=== PATIENT | male | born 1960 | race African-American/Black ===

== ENCOUNTER 2017-11-06 19:00 | Emergency (ER) | payer MEDICAID, OTHER ==
[~2017-11-06] VITALS: Ht 174 cm; Wt 73.0 kg
[~2017-11-06 19:00] MED LIST: METF500T6
[2017-11-06] MEDS ORDERED: FERR-71 MT (19:45)
[2017-11-06] MEDS ORDERED: HYDR-4009 MT (19:45)
[2017-11-06] MEDS ORDERED: GABA-290 MT (19:45)
[2017-11-06] MEDS ORDERED: CHOLESTEROL (19:45)
[2017-11-06] MEDS ORDERED: IBUP-2030 MT (19:45)
[2017-11-06] MEDS ORDERED: HYDR25TA MT (19:45)
[2017-11-07 00:35] LABS: BASOPHILS % 0.2 % (0.0-2.0); EOSINOPHILS % 8.6 % (0.0-5.0); HEMOGLOBIN. 10.6 g/dL (14.0-18.0); LYMPHOCYTES % 28.1 % (20.0-50.0); MEAN CORPUSCULAR HEMOGLOBIN 22.7 pg (28.0-32.0); MEAN CORPUSCULAR VOLUME 72.7 fL (80.0-94.0); MONOCYTES % 9.3 % (2.0-8.0); NEUTROPHILS % 53.8 % (40.0-76.0); PLATELET 215 x1000/uL (130-400); RED BLOOD CELL COUNT 4.68 mill/uL (4.7-6.1); RED CELL DISTRIBUTION WIDTH 15.2 % (11.6-14.6)
[2017-11-07 00:39] LABS: CHLORIDE 110 mEq/L (98-107)
[2017-11-07 00:42] LABS: PROTHROMBIN TIME 10.7 sec (9.4-11.6)
[2017-11-07] MEDS ORDERED: ACETAMINOPHEN WITH CODEINE 300/30MG TABLET PO ONE (01:30)
[2017-11-07 02:30] VITALS: BP 148/88
== END 2017-11-07 02:56 | disposition home or self-care (01) ==
LOC: ER 19:00
DX: E11.621 Type 2 diabetes mellitus with foot ulcer (principal); I10 Essential (primary) hypertension; D64.9 Anemia, unspecified; G62.9 Polyneuropathy, unspecified; F14.10 Cocaine abuse, uncomplicated; E78.00 Pure hypercholesterolemia, unspecified; Z90.81 Acquired absence of spleen; Z88.1 Allergy status to other antibiotic agents
CPT/HCPCS: 36415; 73630; 80053; 85025; 85610; 99285

== ENCOUNTER 2018-09-05 00:11 | Inpatient (IN) | payer MEDICAID ==
[~2018-09-05] VITALS: Ht 175.3 cm; Wt 76.2 kg
[~2018-09-05 00:11] MED LIST changes: +CHOLESTEROL; +FERR-71 MT; +GABA-290 MT; +HYDR-4009 MT; +HYDR25TA MT; +IBUP-2030 MT; +METF-414; -METF500T6
[2018-09-05] MEDS ORDERED: KETOROLAC 60MG/2ML VIAL IM STA (03:03)
[2018-09-05 04:07] LABS: BASOPHILS % 0.9 % (0.0-2.0); EOSINOPHILS % 5.6 % (0.0-5.0); HEMATOCRIT. 34.4 % (42.0-52.0); HEMOGLOBIN. 10.9 g/dL (14.0-18.0); MEAN CORPUSCULAR HEMOGLOBIN 23.1 pg (28.0-32.0); MEAN CORPUSCULAR VOLUME 72.8 fL (80.0-94.0); MEAN PLATELET VOLUME 8.9 fl (7.4-10.4); NEUTROPHILS % 58.5 % (40.0-76.0); PLATELET 188 x1000/uL (130-400); RED BLOOD CELL COUNT 4.72 mill/uL (4.7-6.1); RED CELL DISTRIBUTION WIDTH 14.9 % (11.6-14.6)
[2018-09-05] MEDS ORDERED: CLINDAMYCIN 900 MG in DEXTROSE 5% WATER 50 ML IV ONE (06:30)
[2018-09-05] MEDS ORDERED: PIPERACILLIN/TAZ 3.375G PREMIX 50 ML IV ONE (06:30)
[2018-09-05] MEDS ORDERED: ACETAMINOPHEN 325MG TABLET PO PRN ×2 (07:00→07:45)
[2018-09-05] MEDS: SODIUM CHLORIDE 0.9% 1,000 ML IV SCH ×2 (07:33→20:47)
[2018-09-05] MEDS ORDERED: DOCUSATE SODIUM 100MG CAPSULE PO PRN (07:45)
[2018-09-05] MEDS ORDERED: ONDANSETRON HCL 4MG/2ML INJ IV PRN (07:45)
[2018-09-05 08:31] LABS: CLARITY URINE CLEAR (CLEAR); COLOR URINE YELLOW (YELLOW); KETONES URINE NEGATIVE (NEGATIVE); LEUKOCYTE ESTERASE URINE NEGATIVE (NEGATIVE); NITRITE URINE NEGATIVE (NEGATIVE); OCCULT BLOOD URINE TRACE (NEGATIVE); PH URINE 5.5 (4.5-8.0); PROTEIN URINE 3+ (NEGATIVE); SPECIFIC GRAVITY URINE 1.018 (1.005-1.030); UROBILINOGEN URINE 0.2 E.U./dL (0.2-1.0)
[2018-09-05] MEDS ORDERED: LEVOFLOXACIN 500MG PREMIX 100 ML IV SCH (08:45)
[2018-09-05] MEDS: HYDROMORPHONE HCL/PF 2MG/ML CPJ IV PRN ×3 (10:04→23:39)
[2018-09-05 10:10] VITALS: BP 149/123
[2018-09-05] MEDS ORDERED: LEVOFLOXACIN 500MG PREMIX 100 ML IV NR (13:00)
[2018-09-05] MEDS ORDERED: FLUCONAZOLE 100MG TABLET PO SCH (13:00)
[2018-09-05] MEDS: ENOXAPARIN 30MG/0.3ML SYR SUBCUT SCH (13:08)
[2018-09-05] MEDS: AMLODIPINE 10MG TABLET PO SCH (15:53)
[2018-09-05] MEDS: CLONIDINE 0.1MG TABLET PO PRN (15:53)
[2018-09-05 20:00] VITALS: BP 167/97
[2018-09-05] MEDS: HYDRALAZINE HCL 50MG TABLET PO SCH (20:43)
[2018-09-05] MEDS: CLINDAMYCIN 600MG PREMIX 50 ML IV SCH (22:03)
[2018-09-06] VITALS: BP 135/75
[2018-09-06] MEDS ORDERED: DEXTROSE 50% WATER 50ML SYRINGE IV PRN
[2018-09-06 04:00] VITALS: BP 133/74
[2018-09-06 06:07] LABS: EOSINOPHILS % 6.8 % (0.0-5.0); HEMATOCRIT. 34.1 % (42.0-52.0); HEMOGLOBIN. 10.9 g/dL (14.0-18.0); MEAN CORPUSCULAR HEMOGLOBIN 23.4 pg (28.0-32.0); MEAN CORPUSCULAR VOLUME 73.4 fL (80.0-94.0); MEAN PLATELET VOLUME 8.9 fl (7.4-10.4); MONOCYTES % 11.3 % (2.0-8.0); NEUTROPHILS % 46.9 % (40.0-76.0); PLATELET 174 x1000/uL (130-400); RED BLOOD CELL COUNT 4.65 mill/uL (4.7-6.1); RED CELL DISTRIBUTION WIDTH 15.1 % (11.6-14.6)
[2018-09-06] MEDS: CLINDAMYCIN 600MG PREMIX 50 ML IV SCH ×4 (06:18→22:40)
[2018-09-06] MEDS: BLOOD SUGAR DIAGNOSTIC STRIP TEST SCH ×4 (06:32→21:00)
[2018-09-06 07:37] LABS: CHLORIDE 113 mEq/L (98-107)
[2018-09-06 07:49] LABS: LDL CHOLESTEROL 103 mg/dL (5-100)
[2018-09-06 07:50] LABS: HDL CHOLESTEROL 43 mg/dL (40-59)
[2018-09-06] MEDS: INSULIN LISPRO 100 UNITS/ML SUBCUT SCH ×4 (07:50→21:00)
[2018-09-06 08:20] VITALS: BP 142/85
[2018-09-06] MEDS: HYDRALAZINE HCL 50MG TABLET PO SCH ×2 (08:50→21:18)
[2018-09-06] MEDS: AMLODIPINE 10MG TABLET PO SCH (08:50)
[2018-09-06] MEDS: ENOXAPARIN 30MG/0.3ML SYR SUBCUT SCH (08:53)
[2018-09-06] MEDS: HYDROMORPHONE HCL/PF 2MG/ML CPJ IV PRN ×4 (08:54→23:02)
[2018-09-06] MEDS ORDERED: LEVOFLOXACIN 250MG PREMIX 50 ML IV SCH (11:00)
[2018-09-06] MEDS: SODIUM CHLORIDE 0.9% 1,000 ML IV SCH (11:07)
[2018-09-06 11:36] VITALS: BP 145/88
[2018-09-06] MEDS ORDERED: SODIUM BICARBONATE 4% (2.4MEQ) 5ML VIAL IV ONE (13:58)
[2018-09-06] MEDS ORDERED: LIDOCAINE HCL 1% 20ML VIAL (Pyxis) INJ ONE (13:58)
[2018-09-06] MEDS: CLONIDINE 0.1MG TABLET PO PRN (15:50)
[2018-09-06 16:00] VITALS: BP 161/95
[2018-09-06 20:00] VITALS: BP 154/97
[2018-09-06] MEDS ORDERED: ATORVASTATIN CALCIUM 10MG TABLET PO SCH (21:00)
[2018-09-07] VITALS: BP 149/87
[2018-09-07] MEDS: HYDROMORPHONE HCL/PF 2MG/ML CPJ IV PRN (03:51)
[2018-09-07 04:00] VITALS: BP 158/88
[2018-09-07] MEDS: CLINDAMYCIN 600MG PREMIX 50 ML IV SCH ×2 (06:22→13:49)
[2018-09-07] MEDS: BLOOD SUGAR DIAGNOSTIC STRIP TEST SCH ×2 (06:30→13:17)
[2018-09-07] MEDS: INSULIN LISPRO 100 UNITS/ML SUBCUT SCH ×2 (07:33→12:50)
[2018-09-07 08:00] VITALS: BP 140/84
[2018-09-07] MEDS: HYDROCODONE/APAP 7.5/325MG 1 TAB TABLET PO PRN ×2 (08:59→14:31)
[2018-09-07] MEDS: HYDRALAZINE HCL 50MG TABLET PO SCH (09:00)
[2018-09-07] MEDS: AMLODIPINE 10MG TABLET PO SCH (09:00)
[2018-09-07] MEDS: ENOXAPARIN 30MG/0.3ML SYR SUBCUT SCH (09:04)
[2018-09-07] MEDS ORDERED: LEVOFLOXACIN 250MG PREMIX 50 ML IV SCH (11:00)
[2018-09-07 12:00] VITALS: BP 157/89
[2018-09-07] MEDS: CLONIDINE 0.1MG TABLET PO PRN (14:31)
[2018-09-07 14:33] VITALS: BP 147/68
== END 2018-09-07 17:25 | disposition home health service (06) | DRG 344 ==
LOC: ER 00:11 → 6EST 06:53 → SUPCPDRO 07:31 → ENRESERV 08:09
PROVIDERS: ADMIT Hospitalist; ATTEND Hospitalist
PROC: 0JBR0ZZ Excision of Left Foot Subcutaneous Tissue and Fascia, Open Approach (ICD-10-PCS; principal; 2018-09-06)
PROC: 02HV33Z Insertion of Infusion Device into Superior Vena Cava, Percutaneous Approach (ICD-10-PCS; 2018-09-06)
PROC: B518ZZA Fluoroscopy of Superior Vena Cava, Guidance (ICD-10-PCS; 2018-09-06)
PROC: B548ZZA Ultrasonography of Superior Vena Cava, Guidance (ICD-10-PCS; 2018-09-06)
DX: E11.69 Type 2 diabetes mellitus with other specified complication (principal); M86.672 Other chronic osteomyelitis, left ankle and foot; N17.9 Acute kidney failure, unspecified; E46 Unspecified protein-calorie malnutrition; E11.621 Type 2 diabetes mellitus with foot ulcer; E11.22 Type 2 diabetes mellitus with diabetic chronic kidney disease; E11.610 Type 2 diabetes mellitus with diabetic neuropathic arthropathy; E11.42 Type 2 diabetes mellitus with diabetic polyneuropathy; L97.529 Non-pressure chronic ulcer of other part of left foot with unspecified severity; I12.9 Hypertensive chronic kidney disease with stage 1 through stage 4 chronic kidney disease, or unspecified chronic kidney disease; N18.9 Chronic kidney disease, unspecified; F12.90 Cannabis use, unspecified, uncomplicated; E78.00 Pure hypercholesterolemia, unspecified; D64.9 Anemia, unspecified; F17.210 Nicotine dependence, cigarettes, uncomplicated; Z83.3 Family history of diabetes mellitus; Z89.412 Acquired absence of left great toe; Z90.81 Acquired absence of spleen; Z91.19 Patient's noncompliance with other medical treatment and regimen; Z88.1 Allergy status to other antibiotic agents; Z91.012 Allergy to eggs; Z79.899 Other long term (current) drug therapy; Z68.24 Body mass index [BMI] 24.0-24.9, adult; Z79.84 Long term (current) use of oral hypoglycemic drugs
CPT/HCPCS: 36415; 36569; 36573; 71045; 73630; 80048; 80061; 82962; 93005; 93970; 96365; 96368; 96372; 99285; C1725; C1769; J1170; J1650; J1885; J1956; J2543; J3490; J7060

== ENCOUNTER 2018-11-10 23:07 | Inpatient (IN) | payer MEDICAID, OTHER ==
[~2018-11-10] VITALS: Ht 172.7 cm; Wt 72.1 kg
[~2018-11-10 23:07] MED LIST changes: -CHOLESTEROL
[2018-11-11] MEDS ORDERED: MORPHINE SULFATE 4 MG/ML CPJ (NOT FOR IM USE) IV STA (01:12)
[2018-11-11] MEDS ORDERED: SODIUM CHLORIDE 0.9% 1,000 ML IV ONE (01:12)
[2018-11-11] MEDS ORDERED: ONDANSETRON HCL 4MG/2ML INJ IV STA (01:12)
[2018-11-11] MEDS ORDERED: PIPERACILLIN/TAZ 3.375G PREMIX 50 ML IV ONE (01:15)
[2018-11-11] MEDS ORDERED: CLINDAMYCIN 600 MG in DEXTROSE 5% WATER 50 ML IV ONE (01:15)
[2018-11-11 02:28] LABS: BASOPHILS % 1.2 % (0.0-2.0); CHLORIDE 113 mEq/L (98-107); EOSINOPHILS % 3.8 % (0.0-5.0); HEMATOCRIT. 36.1 % (42.0-52.0); HEMOGLOBIN. 11.4 g/dL (14.0-18.0); LYMPHOCYTES % 28.6 % (20.0-50.0); MEAN CORPUSCULAR HEMOGLOBIN 23.5 pg (28.0-32.0); MEAN CORPUSCULAR VOLUME 74.7 fL (80.0-94.0); MEAN PLATELET VOLUME 9.5 fl (7.4-10.4); MONOCYTES % 10.3 % (2.0-8.0); NEUTROPHILS % 56.1 % (40.0-76.0); PLATELET 180 x1000/uL (130-400); RED BLOOD CELL COUNT 4.83 mill/uL (4.7-6.1); RED CELL DISTRIBUTION WIDTH 14.8 % (11.6-14.6)
[2018-11-11 04:07] LABS: *AMPHETAMINES SCREEN URINE NEGATIVE (NEGATIVE)
[2018-11-11 04:08] LABS: *BARBITURATES SCREEN URINE NEGATIVE (NEGATIVE); *BENZODIAZEPINES SCREEN URINE NEGATIVE (NEGATIVE); *COCAINE SCREEN URINE PRESUMTIVE POSITIVE (NEGATIVE); METHADONE URINE SCREEN NEGATIVE (NEGATIVE); OPIATES URINE SCREEN PRESUMTIVE POSITIVE (NEGATIVE); PHENCYCLIDINE URINE SCREEN NEGATIVE (NEGATIVE)
[2018-11-11 04:09] LABS: CANNABINOID URINE SCREEN NEGATIVE (NEGATIVE)
[2018-11-11 05:30] VITALS: BP 186/115
[2018-11-11] MEDS ORDERED: FURO40TA5 PO (05:49)
[2018-11-11] MEDS ORDERED: ATOR20TA65 MT (05:49)
[2018-11-11] MEDS ORDERED: INSU100I28 SQ (05:49)
[2018-11-11] MEDS ORDERED: SILV20CR13 TP (05:49)
[2018-11-11] MEDS ORDERED: GABA-533 PO (05:49)
[2018-11-11] MEDS ORDERED: FISH1CAP34 PO (05:49)
[2018-11-11] MEDS ORDERED: CARV6.2548 PO (05:49)
[2018-11-11 06:21] VITALS: BP 186/115
[2018-11-11] MEDS ORDERED: VANCOMYCIN 1 G PREMIX 200 ML IV SCH (07:45)
[2018-11-11] MEDS ORDERED: DEXTROSE 50% WATER 50ML SYRINGE IV PRN (07:45)
[2018-11-11] MEDS ORDERED: HYDROCODONE/ACETAMINOPHEN 5/325MG TABLET PO PRN (07:45)
[2018-11-11] MEDS: INSULIN LISPRO 100 UNITS/ML SUBCUT SCH ×4 (07:50→21:00)
[2018-11-11 08:00] VITALS: BP 160/96
[2018-11-11] MEDS ORDERED: IBUPROFEN 800MG TABLET PO PRN (08:45)
[2018-11-11] MEDS ORDERED: GABAPENTIN 400MG CAPSULE PO ONE (09:00)
[2018-11-11] MEDS: ENOXAPARIN 40MG/0.4ML SYR SUBCUT SCH (10:08)
[2018-11-11] MEDS: FISH OIL/OMEGA-3 FATTY ACIDS 1000MG CAPSULE PO SCH (10:08)
[2018-11-11] MEDS: CARVEDILOL 6.25 MG TABLET PO SCH ×2 (10:09→21:00)
[2018-11-11] MEDS: HYDROCHLOROTHIAZIDE 25MG TABLET PO SCH (10:09)
[2018-11-11] MEDS: FERROUS SULFATE 325MG TABLET PO SCH (10:09)
[2018-11-11] MEDS: FUROSEMIDE 40MG TABLET PO SCH (10:09)
[2018-11-11] MEDS ORDERED: LEVOFLOXACIN 500MG TABLET PO SCH ×2 (11:00→13:00)
[2018-11-11 12:00] VITALS: BP 161/90
[2018-11-11] MEDS: BLOOD SUGAR DIAGNOSTIC STRIP TEST SCH ×3 (12:20→21:00)
[2018-11-11] MEDS: CLONIDINE 0.3MG TABLET PO PRN (13:19)
[2018-11-11] MEDS: SILVER SULFADIAZINE 1% CREAM 25GM TOP SCH ×2 (13:19→22:20)
[2018-11-11] MEDS: CLINDAMYCIN 600MG PREMIX 50 ML IV SCH ×2 (14:28→22:04)
[2018-11-11] MEDS: GABAPENTIN 300MG CAPSULE PO SCH ×2 (14:29→22:00)
[2018-11-11 16:00] VITALS: BP 113/63
[2018-11-11 20:00] VITALS: BP 120/69
[2018-11-11] MEDS: ATORVASTATIN CALCIUM 20MG TABLET PO SCH (22:03)
[2018-11-11] MEDS: MORPHINE SULFATE 2 MG/ML CPJ (NOT FOR IM USE) IV PRN (22:04)
[2018-11-12] VITALS: BP 129/72
[2018-11-12] MEDS: CLINDAMYCIN 600MG PREMIX 50 ML IV SCH ×3 (06:15→22:17)
[2018-11-12] MEDS: POLYVINYL ALCOHOL OPHTH DROPS 15ML BOTHEYE PRN ×3 (06:15→22:18)
[2018-11-12] MEDS: GABAPENTIN 300MG CAPSULE PO SCH ×3 (06:25→22:17)
[2018-11-12] MEDS: BLOOD SUGAR DIAGNOSTIC STRIP TEST SCH ×4 (07:20→21:00)
[2018-11-12] MEDS: INSULIN LISPRO 100 UNITS/ML SUBCUT SCH ×4 (07:50→21:00)
[2018-11-12 08:00] VITALS: BP 126/70
[2018-11-12] MEDS: CARVEDILOL 6.25 MG TABLET PO SCH ×3 (09:00→22:19)
[2018-11-12] MEDS: MORPHINE SULFATE 2 MG/ML CPJ (NOT FOR IM USE) IV PRN ×2 (09:04→18:26)
[2018-11-12] MEDS: FISH OIL/OMEGA-3 FATTY ACIDS 1000MG CAPSULE PO SCH (10:02)
[2018-11-12] MEDS: ENOXAPARIN 40MG/0.4ML SYR SUBCUT SCH (10:02)
[2018-11-12] MEDS: FERROUS SULFATE 325MG TABLET PO SCH (10:03)
[2018-11-12] MEDS: FUROSEMIDE 40MG TABLET PO SCH (10:03)
[2018-11-12] MEDS: SILVER SULFADIAZINE 1% CREAM 25GM TOP SCH ×2 (10:05→22:18)
[2018-11-12] MEDS: HYDROCHLOROTHIAZIDE 25MG TABLET PO SCH (10:05)
[2018-11-12] MEDS: LEVOFLOXACIN 250MG TABLET PO SCH (11:57)
[2018-11-12 12:00] VITALS: BP 148/79
[2018-11-12 16:00] VITALS: BP 146/74
[2018-11-12 20:00] VITALS: BP 118/63
[2018-11-12] MEDS: ATORVASTATIN CALCIUM 20MG TABLET PO SCH (22:17)
[2018-11-13] VITALS: BP 135/83
[2018-11-13] MEDS: MORPHINE SULFATE 2 MG/ML CPJ (NOT FOR IM USE) IV PRN ×2 (03:02→11:29)
[2018-11-13] MEDS: CLONIDINE 0.3MG TABLET PO PRN (03:06)
[2018-11-13 04:44] VITALS: BP 110/70
[2018-11-13] MEDS: GABAPENTIN 300MG CAPSULE PO SCH ×2 (06:03→14:57)
[2018-11-13] MEDS: CLINDAMYCIN 600MG PREMIX 50 ML IV SCH ×2 (06:04→14:57)
[2018-11-13] MEDS: BLOOD SUGAR DIAGNOSTIC STRIP TEST SCH ×2 (06:09→11:38)
[2018-11-13] MEDS: INSULIN LISPRO 100 UNITS/ML SUBCUT SCH ×2 (06:09→12:50)
[2018-11-13 07:41] LABS: BASOPHILS % 0.7 % (0.0-2.0); EOSINOPHILS % 6.4 % (0.0-5.0); HEMATOCRIT. 37.2 % (42.0-52.0); HEMOGLOBIN. 11.8 g/dL (14.0-18.0); LYMPHOCYTES % 36.6 % (20.0-50.0); MEAN CORPUSCULAR HEMOGLOBIN 23.6 pg (28.0-32.0); MEAN CORPUSCULAR VOLUME 74.8 fL (80.0-94.0); MEAN PLATELET VOLUME 9.5 fl (7.4-10.4); MONOCYTES % 11.7 % (2.0-8.0); NEUTROPHILS % 44.6 % (40.0-76.0); PLATELET 171 x1000/uL (130-400); RED BLOOD CELL COUNT 4.97 mill/uL (4.7-6.1)
[2018-11-13 08:00] VITALS: BP 106/64
[2018-11-13] MEDS: ENOXAPARIN 40MG/0.4ML SYR SUBCUT SCH (08:50)
[2018-11-13] MEDS: FISH OIL/OMEGA-3 FATTY ACIDS 1000MG CAPSULE PO SCH (08:50)
[2018-11-13] MEDS: HYDROCHLOROTHIAZIDE 25MG TABLET PO SCH (08:50)
[2018-11-13] MEDS: FUROSEMIDE 40MG TABLET PO SCH (08:50)
[2018-11-13] MEDS: SILVER SULFADIAZINE 1% CREAM 25GM TOP SCH (08:51)
[2018-11-13] MEDS: CARVEDILOL 6.25 MG TABLET PO SCH (08:51)
[2018-11-13] MEDS: FERROUS SULFATE 325MG TABLET PO SCH (08:51)
[2018-11-13] MEDS ORDERED: SODIUM CHLORIDE 0.45% 1,000 ML IV SCH (10:30)
[2018-11-13] MEDS: LEVOFLOXACIN 250MG TABLET PO SCH (10:45)
[2018-11-13 12:00] VITALS: BP 116/73
[2018-11-13 16:00] VITALS: BP 147/78
[2018-11-13 16:37] VITALS: BP 116/73
[2018-11-14] MEDS ORDERED: ENOXAPARIN 30MG/0.3ML SYR SUBCUT SCH (09:00)
== END 2018-11-13 17:37 | disposition home health service (06) | DRG 380 ==
LOC: ER 23:07 → 6EST 11-11 03:41 → ENRESERV 11-11 04:30
PROVIDERS: ADMIT Internal Medicine; ATTEND Internal Medicine
PROC: 0JBR0ZZ Excision of Left Foot Subcutaneous Tissue and Fascia, Open Approach (ICD-10-PCS; principal; 2018-11-13)
DX: E11.621 Type 2 diabetes mellitus with foot ulcer (principal); L97.529 Non-pressure chronic ulcer of other part of left foot with unspecified severity; N17.9 Acute kidney failure, unspecified; E46 Unspecified protein-calorie malnutrition; E11.22 Type 2 diabetes mellitus with diabetic chronic kidney disease; E11.42 Type 2 diabetes mellitus with diabetic polyneuropathy; E11.610 Type 2 diabetes mellitus with diabetic neuropathic arthropathy; I13.0 Hypertensive heart and chronic kidney disease with heart failure and stage 1 through stage 4 chronic kidney disease, or unspecified chronic kidney disease; N18.9 Chronic kidney disease, unspecified; I50.9 Heart failure, unspecified; I25.10 Atherosclerotic heart disease of native coronary artery without angina pectoris; D64.9 Anemia, unspecified; F14.10 Cocaine abuse, uncomplicated; E11.51 Type 2 diabetes mellitus with diabetic peripheral angiopathy without gangrene; Z88.1 Allergy status to other antibiotic agents; Z91.012 Allergy to eggs; Z72.0 Tobacco use; Z83.3 Family history of diabetes mellitus; Z90.81 Acquired absence of spleen; Z91.19 Patient's noncompliance with other medical treatment and regimen; Z79.899 Other long term (current) drug therapy; Z89.412 Acquired absence of left great toe; Z68.24 Body mass index [BMI] 24.0-24.9, adult
CPT/HCPCS: 36415; 73620; 80048; 80305; 82962; 83605; 84145; 96365; 96366; 96367; 96375; 99285; J1650; J2270; J2405; J2543; J3490; J7030; J7040; J7060

== ENCOUNTER 2019-02-06 07:01 | Emergency (ER) | payer OTHER ==
[~2019-02-06] VITALS: Ht 172.7 cm; Wt 75.0 kg
[~2019-02-06 07:01] MED LIST changes: +ATOR20TA65 MT; +CARV6.2548 PO; +FISH1CAP34 PO; +FURO40TA5 PO; +GABA-533 PO; +INSU100I28 SQ; +SILV20CR13 TP
[2019-02-06] MEDS ORDERED: MORPHINE SULFATE 4 MG/ML CPJ (NOT FOR IM USE) IV STA (07:10)
[2019-02-06] MEDS ORDERED: ONDANSETRON HCL 4MG/2ML INJ IV STA (07:10)
[2019-02-06] MEDS ORDERED: NITROGLYCERIN 0.4MG TABLET SL SL PRN (07:15)
[2019-02-06] MEDS ORDERED: ASPIRIN 81MG TABLET PO ONE (07:15)
[2019-02-06] MEDS ORDERED: HYDRALAZINE 20MG/ML VIAL IV ONE (07:15)
[2019-02-06 07:55] LABS: CHLORIDE 115 mEq/L (98-107)
[2019-02-06 08:00] LABS: HEMATOCRIT. 39.9 % (42.0-52.0); HEMOGLOBIN. 12.4 g/dL (14.0-18.0); MEAN CORPUSCULAR HEMOGLOBIN 23.4 pg (28.0-32.0); MEAN CORPUSCULAR VOLUME 75.3 fL (80.0-94.0); PLATELET 167 x1000/uL (130-400); RED CELL DISTRIBUTION WIDTH 14.8 % (11.6-14.6)
[2019-02-06 08:30] LABS: PLATELET ESTIMATE NORMAL
[2019-02-06] MEDS ORDERED: PIPERACILLIN SODIUM/TAZOBACTAM 4.5 G in DEXT 5% WATER 100 ML IV SCH (09:15)
[2019-02-06 12:36] VITALS: BP 152/88
== END 2019-02-06 12:50 | disposition short-term general hospital (02) ==
LOC: ER 07:01 → CANBEDREQ 16:46
DX: I16.1 Hypertensive emergency (principal); I20.0 Unstable angina; E11.9 Type 2 diabetes mellitus without complications; L97.428 Non-pressure chronic ulcer of left heel and midfoot with other specified severity; L08.9 Local infection of the skin and subcutaneous tissue, unspecified; E78.00 Pure hypercholesterolemia, unspecified; F12.10 Cannabis abuse, uncomplicated; F14.10 Cocaine abuse, uncomplicated; Z90.81 Acquired absence of spleen; Z91.012 Allergy to eggs; Z88.3 Allergy status to other anti-infective agents
CPT/HCPCS: 36415; 70450; 71045; 73620; 80053; 83880; 84484; 85025; 87040; 93005; 96365; 96375; 99291; J0360; J2270; J2405; J2543; J7060; Z7610

== ENCOUNTER 2019-04-14 15:27 | Emergency (ER) | payer OTHER ==
[~2019-04-14] VITALS: Ht 172.7 cm; Wt 77.0 kg
[2019-04-14] MEDS ORDERED: MORPHINE SULFATE 10 MG/ML CPJ IM ONE (16:15)
[2019-04-14 16:40] LABS: BASOPHILS % 0.9 % (0.0-2.0); EOSINOPHILS % 6.6 % (0.0-5.0); HEMATOCRIT. 38.2 % (42.0-52.0); HEMOGLOBIN. 11.8 g/dL (14.0-18.0); LYMPHOCYTES % 28.7 % (20.0-50.0); MEAN CORPUSCULAR HEMOGLOBIN 23.4 pg (28.0-32.0); MEAN CORPUSCULAR VOLUME 75.9 fL (80.0-94.0); MEAN PLATELET VOLUME 8.7 fl (7.4-10.4); MONOCYTES % 7.8 % (2.0-8.0); PLATELET 179 x1000/uL (130-400); RED BLOOD CELL COUNT 5.03 mill/uL (4.7-6.1); RED CELL DISTRIBUTION WIDTH 14.8 % (11.6-14.6)
[2019-04-14 16:45] LABS: CHLORIDE 111 mEq/L (98-107)
[2019-04-14 21:36] VITALS: BP 178/99
== END 2019-04-14 21:37 | disposition home or self-care (01) ==
LOC: ER 15:27
DX: R10.11 Right upper quadrant pain (principal); D64.9 Anemia, unspecified; E11.9 Type 2 diabetes mellitus without complications; E78.00 Pure hypercholesterolemia, unspecified; I10 Essential (primary) hypertension; F12.10 Cannabis abuse, uncomplicated; F14.10 Cocaine abuse, uncomplicated; Z90.81 Acquired absence of spleen; Z79.899 Other long term (current) drug therapy; Z79.4 Long term (current) use of insulin; Z88.1 Allergy status to other antibiotic agents; Z91.012 Allergy to eggs
CPT/HCPCS: 36415; 71045; 74176; 76705; 80053; 83690; 84484; 85025; 85610; 93005; 96372; 99284; J2270

== ENCOUNTER 2019-08-29 03:19 | Emergency (ER) | payer OTHER ==
[~2019-08-29] VITALS: Ht 182.9 cm; Wt 68.0 kg
[2019-08-29] MEDS ORDERED: ACETAMINOPHEN 500MG TABLET PO ONE (03:45)
[2019-08-29] MEDS ORDERED: HYDRALAZINE HCL 25MG TABLET PO ONE (04:00)
[2019-08-29 08:32] VITALS: BP 150/83
== END 2019-08-29 09:27 | disposition home or self-care (01) ==
LOC: ER 03:19
DX: E11.621 Type 2 diabetes mellitus with foot ulcer (principal); L97.529 Non-pressure chronic ulcer of other part of left foot with unspecified severity; M54.9 Dorsalgia, unspecified; I10 Essential (primary) hypertension; Z79.899 Other long term (current) drug therapy; Z79.4 Long term (current) use of insulin; Z91.012 Allergy to eggs; Z88.1 Allergy status to other antibiotic agents; Z89.412 Acquired absence of left great toe; Z90.81 Acquired absence of spleen
CPT/HCPCS: 73630; 82962; 99283

== ENCOUNTER 2019-11-21 22:32 | Emergency (ER) | payer MEDICAID, OTHER ==
[~2019-11-21] VITALS: Ht 172.7 cm; Wt 72.0 kg
[2019-11-21] MEDS ORDERED: ONDANSETRON HCL 4MG/2ML INJ IV STA (23:18)
[2019-11-21] MEDS ORDERED: SODIUM CHLORIDE 0.9% 1,000 ML IV ONE (23:18)
[2019-11-21] MEDS ORDERED: MORPHINE SULFATE 4 MG/ML CPJ (NOT FOR IM USE) IV STA (23:18)
[2019-11-21] MEDS ORDERED: CEFAZOLIN 1000MG PREMIX 50 ML IV ONE (23:30)
[2019-11-21 23:55] LABS: BASOPHILS % 0.6 % (0.0-2.0); EOSINOPHILS % 4.7 % (0.0-5.0); HEMATOCRIT. 33.8 % (42.0-52.0); HEMOGLOBIN. 10.9 g/dL (14.0-18.0); LYMPHOCYTES % 19.8 % (20.0-50.0); MEAN CORPUSCULAR HEMOGLOBIN 24.2 pg (28.0-32.0); MONOCYTES % 9.2 % (2.0-8.0); NEUTROPHILS % 65.7 % (40.0-76.0); PLATELET 158 x1000/uL (130-400); RED CELL DISTRIBUTION WIDTH 15.9 % (11.6-14.6)
[2019-11-22] MEDS ORDERED: FENTANYL CITRATE/PF 50MCG/ML 2ML VIAL IV ONE (00:15)
[2019-11-22] MEDS ORDERED: MIDAZOLAM HCL 2 MG/2 ML VIAL IV ONE (01:30)
[2019-11-22] MEDS ORDERED: HYDROMORPHONE HCL/PF 2MG/ML CPJ IV ONE (01:30)
[2019-11-22 04:53] VITALS: BP 125/58
== END 2019-11-22 05:00 | disposition short-term general hospital (02) ==
LOC: ER 22:32
DX: S82.252A Displaced comminuted fracture of shaft of left tibia, initial encounter for closed fracture (principal); S82.452A Displaced comminuted fracture of shaft of left fibula, initial encounter for closed fracture; E11.9 Type 2 diabetes mellitus without complications; I10 Essential (primary) hypertension; V03.90XA Pedestrian on foot injured in collision with car, pick-up truck or van, unspecified whether traffic or nontraffic accident, initial encounter; Y93.02 Activity, running; Y92.410 Unspecified street and highway as the place of occurrence of the external cause; Z79.4 Long term (current) use of insulin; Z88.3 Allergy status to other anti-infective agents; Z91.012 Allergy to eggs; Z98.890 Other specified postprocedural states
CPT/HCPCS: 36415; 73590; 73600; 73620; 80048; 85025; 96365; 96375; 99285; J0690; J1170; J2250; J2270; J2405; J3010; J7030; Z7610

== ENCOUNTER 2020-01-06 08:35 | Inpatient (IN) | payer MEDICAID ==
[~2020-01-06] VITALS: Ht 264.2 cm; Wt 73.5 kg
[2020-01-06 09:26] LABS: BASOPHILS % 1.1 % (0.0-2.0); EOSINOPHILS % 2.3 % (0.0-5.0); HEMATOCRIT. 34.7 % (42.0-52.0); LYMPHOCYTES % 11.3 % (20.0-50.0); MEAN CORPUSCULAR HEMOGLOBIN 23.5 pg (28.0-32.0); MEAN CORPUSCULAR VOLUME 74.4 fL (80.0-94.0); MEAN PLATELET VOLUME 8.9 fl (7.4-10.4); MONOCYTES % 8.4 % (2.0-8.0); NEUTROPHILS % 76.9 % (40.0-76.0); PLATELET 250 x1000/uL (130-400); RED BLOOD CELL COUNT 4.67 mill/uL (4.7-6.1); RED CELL DISTRIBUTION WIDTH 14.9 % (11.6-14.6)
[2020-01-06 09:28] LABS: CHLORIDE 106 mEq/L (98-107)
[2020-01-06] MEDS ORDERED: KETOROLAC 30MG/ML VIAL IV STA (10:09)
[2020-01-06] MEDS ORDERED: SODIUM CHLORIDE 0.9% 1,000 ML IV ONE (10:09)
[2020-01-06] MEDS ORDERED: ONDANSETRON HCL 4MG/2ML INJ IV STA (10:09)
[2020-01-06 10:48] LABS: PROTHROMBIN TIME 10.8 sec (9.6-11.0)
[2020-01-06 10:49] LABS: CHLORIDE 104 mEq/L (98-107)
[2020-01-06 11:44] LABS: CLARITY URINE CLEAR (CLEAR); KETONES URINE NEGATIVE (NEGATIVE); LEUKOCYTE ESTERASE URINE NEGATIVE (NEGATIVE); NITRITE URINE NEGATIVE (NEGATIVE); OCCULT BLOOD URINE NEGATIVE (NEGATIVE); PROTEIN URINE 3+ (NEGATIVE); SPECIFIC GRAVITY URINE 1.014 (1.005-1.030); UROBILINOGEN URINE 0.2 E.U./dL (0.2-1.0)
[2020-01-06 11:46] LABS: COLOR URINE YELLOW (YELLOW)
[2020-01-06] MEDS ORDERED: HYDROCHLOROTHIAZIDE 25MG TABLET PO ONE (12:15)
[2020-01-06] MEDS ORDERED: HYDROCHLOROTHIAZIDE 12.5MG CAPSULE PO NR (12:30)
[2020-01-06] MEDS ORDERED: HYDRALAZINE HCL 10MG TABLET PO ONE (13:30)
[2020-01-06] MEDS ORDERED: LABETALOL 5MG/ML SYR 20 MG/4 ML SYRINGE IV ONE (15:45)
[2020-01-06] MEDS ORDERED: MORPHINE SULFATE 4 MG/ML CPJ (NOT FOR IM USE) IV ONE (16:30)
[2020-01-06] MEDS ORDERED: CLONIDINE 0.1MG TABLET PO PRN (17:45)
[2020-01-06] MEDS ORDERED: GUAIFENESIN 200MG/10ML SUGAR FREE UDC PO PRN (17:45)
[2020-01-06] MEDS ORDERED: ACETAMINOPHEN 325MG TABLET PO PRN ×2 (17:45)
[2020-01-06] MEDS ORDERED: ONDANSETRON HCL 4MG/2ML INJ IV PRN (17:45)
[2020-01-06] MEDS ORDERED: MAGNESIUM/ALUMINUM HYDROXIDE/SIMETHICONE 30ML UDC PO PRN (17:45)
[2020-01-06] MEDS ORDERED: LORAZEPAM 0.5MG TABLET PO PRN (17:45)
[2020-01-06] MEDS ORDERED: IPRATROPIUM/ALBUTEROL 0.5-3(2.5)MG/3ML NEB NEB PRN (17:45)
[2020-01-06] MEDS ORDERED: DOCUSATE SODIUM 100MG CAPSULE PO PRN (17:45)
[2020-01-06] MEDS ORDERED: DEXTROSE 50% WATER 50ML SYRINGE IV PRN ×2 (17:45→18:00)
[2020-01-06] MEDS ORDERED: KETOROLAC 15MG/ML VIAL IV PRN (17:45)
[2020-01-06] MEDS ORDERED: NITROGLYCERIN 0.4MG TABLET SL SL PRN (17:45)
[2020-01-06] MEDS ORDERED: BLOOD SUGAR DIAGNOSTIC STRIP TEST SCH (18:00)
[2020-01-06] MEDS ORDERED: ENOXAPARIN 30MG/0.3ML SYR SUBCUT SCH (18:00)
[2020-01-06] MEDS: BLOOD SUGAR DIAGNOSTIC STRIP TEST SCH ×2 (18:15→21:46)
[2020-01-06] MEDS: INSULIN LISPRO 100 UNITS/ML SUBCUT SCH ×2 (18:16→21:00)
[2020-01-06] MEDS: CARVEDILOL 12.5MG TABLET PO SCH (18:23)
[2020-01-06] MEDS: AMLODIPINE 10MG TABLET PO SCH (20:05)
[2020-01-06] MEDS: FUROSEMIDE 40MG/4ML VIAL IVP SCH (20:45)
[2020-01-06] MEDS ORDERED: ATORVASTATIN CALCIUM 20MG TABLET PO SCH (21:00)
[2020-01-06] MEDS ORDERED: ZOLPIDEM TARTRATE 5MG TABLET PO PRN (21:00)
[2020-01-06] MEDS: LISINOPRIL 20MG TABLET PO SCH (21:54)
[2020-01-06] MEDS: ASCORBIC ACID 500 MG TABLET PO SCH (21:54)
[2020-01-06] MEDS: HYDRALAZINE HCL 50MG TABLET PO SCH (22:42)
[2020-01-07] VITALS (9 sets, daily range): BP systolic 86–135; BP diastolic 37–72
[2020-01-07] MEDS: HYDRALAZINE HCL 50MG TABLET PO SCH (05:39)
[2020-01-07] MEDS: CARVEDILOL 12.5MG TABLET PO SCH (05:40)
[2020-01-07] MEDS: BLOOD SUGAR DIAGNOSTIC STRIP TEST SCH ×2 (06:15→12:00)
[2020-01-07] MEDS: INSULIN LISPRO 100 UNITS/ML SUBCUT SCH ×2 (07:13→12:00)
[2020-01-07 08:04] LABS: CREATINE KINASE 110 IU/L (39-308); CREATINE KINASE MB FRACTION 1.9 ng/mL (0.5-3.6)
[2020-01-07] MEDS: ASCORBIC ACID 500 MG TABLET PO SCH (08:15)
[2020-01-07] MEDS: LISINOPRIL 20MG TABLET PO SCH (08:26)
[2020-01-07] MEDS: AMLODIPINE 10MG TABLET PO SCH (08:26)
[2020-01-07] MEDS: FUROSEMIDE 40MG/4ML VIAL IVP SCH (08:26)
[2020-01-07] MEDS ORDERED: ZINC SULFATE 220 MG ( 50 ) CAPSULE PO SCH (09:00)
[2020-01-07] MEDS ORDERED: ASPIRIN 325MG EC TABLET PO SCH (09:00)
[2020-01-07 11:48] LABS: *AMPHETAMINES SCREEN URINE NEGATIVE (NEGATIVE); *BARBITURATES SCREEN URINE NEGATIVE (NEGATIVE); *BENZODIAZEPINES SCREEN URINE NEGATIVE (NEGATIVE); *COCAINE SCREEN URINE PRESUMTIVE POSITIVE (NEGATIVE); METHADONE URINE SCREEN NEGATIVE (NEGATIVE); OPIATES URINE SCREEN PRESUMTIVE POSITIVE (NEGATIVE); PHENCYCLIDINE URINE SCREEN NEGATIVE (NEGATIVE)
[2020-01-07 11:52] LABS: CANNABINOID URINE SCREEN NEGATIVE (NEGATIVE)
[2020-01-07] MEDS ORDERED: PNEUMOCOCCAL 23-VAL P-SAC VAC 0.5 ML IM ONE (12:00)
== END 2020-01-07 14:20 | disposition home or self-care (01) | DRG 470 ==
LOC: ER 08:35 → 3WST 16:24 → EDBEDREQ 16:42 → EDBEDREQTM 16:42 → CANRESERV 22:09 → ENRESERV 22:09
PROVIDERS: ADMIT Internal Medicine; ATTEND Internal Medicine
DX: I12.9 Hypertensive chronic kidney disease with stage 1 through stage 4 chronic kidney disease, or unspecified chronic kidney disease (principal); I16.1 Hypertensive emergency; E44.1 Mild protein-calorie malnutrition; N17.0 Acute kidney failure with tubular necrosis; N18.9 Chronic kidney disease, unspecified; D63.8 Anemia in other chronic diseases classified elsewhere; E11.22 Type 2 diabetes mellitus with diabetic chronic kidney disease; E11.42 Type 2 diabetes mellitus with diabetic polyneuropathy; K59.00 Constipation, unspecified; Z83.3 Family history of diabetes mellitus; Z90.81 Acquired absence of spleen; Z79.4 Long term (current) use of insulin; Z68.1 Body mass index [BMI] 19.9 or less, adult; Z88.1 Allergy status to other antibiotic agents; Z91.012 Allergy to eggs; Z79.899 Other long term (current) drug therapy
CPT/HCPCS: 36415; 74022; 80053; 80061; 80305; 81003; 82550; 82553; 82962; 83036; 84484; 85025; 90732; 93005; 93970; 96374; 99285; J1650; J1885; J1940; J2270; J2405; J3490; J7030

== ENCOUNTER 2020-02-06 03:09 | Emergency (ER) | payer MEDICAID, OTHER ==
[~2020-02-06] VITALS: Ht 175.3 cm; Wt 68.0 kg
[2020-02-06] MEDS ORDERED: KETOROLAC 30MG/ML VIAL IM ONE (05:45)
[2020-02-06 06:06] LABS: HEMATOCRIT. 31.5 % (42.0-52.0); HEMOGLOBIN. 9.7 g/dL (14.0-18.0); MEAN CORPUSCULAR HEMOGLOBIN 22.6 pg (28.0-32.0); MEAN CORPUSCULAR VOLUME 73.2 fL (80.0-94.0); MEAN PLATELET VOLUME 7.9 fl (7.4-10.4); PLATELET 529 x1000/uL (130-400); RED CELL DISTRIBUTION WIDTH 15.3 % (11.6-14.6)
[2020-02-06] MEDS ORDERED: MORPHINE SULFATE 4 MG/ML CPJ (NOT FOR IM USE) IV STA ×2 (07:03→11:35)
[2020-02-06] MEDS ORDERED: PIPERACILLIN/TAZ 3.375G PREMIX 50 ML IV ONE (07:15)
[2020-02-06] MEDS ORDERED: HYDROCODONE/ACETAMINOPHEN 10/325MG TABLET PO ONE (08:45)
[2020-02-06] MEDS ORDERED: LOSARTAN POTASSIUM 100 MG TABLET PO ONE (10:30)
[2020-02-06] MEDS ORDERED: ONDANSETRON HCL 4MG/2ML INJ IV STA (11:35)
[2020-02-06] MEDS ORDERED: LABETALOL 5MG/ML SYR 20 MG/4 ML SYRINGE IV ONE (16:30)
[2020-02-06] MEDS ORDERED: ONDANSETRON HCL 4MG/2ML INJ IV ONE (18:45)
[2020-02-06] MEDS ORDERED: MORPHINE SULFATE 10 MG/ML CPJ IV ONE (18:45)
[2020-02-06] MEDS ORDERED: CARVEDILOL 6.25 MG TABLET PO ONE (21:00)
[2020-02-06] MEDS ORDERED: NIFEDIPINE XL 60MG TAB PO ONE (21:00)
[2020-02-06 21:35] VITALS: BP 177/98
== END 2020-02-06 22:01 | disposition short-term general hospital (02) ==
LOC: ER 03:09
DX: M79.605 Pain in left leg (principal); L03.116 Cellulitis of left lower limb; E11.9 Type 2 diabetes mellitus without complications; I10 Essential (primary) hypertension; Z91.012 Allergy to eggs; Z88.1 Allergy status to other antibiotic agents; Z79.899 Other long term (current) drug therapy; Z98.890 Other specified postprocedural states
CPT/HCPCS: 36415; 73590; 80048; 82962; 85025; 85651; 86140; 93005; 96365; 96372; 96375; 96376; 99285; J1885; J2270; J2405; J2543; J3490

== ENCOUNTER 2020-10-15 22:39 | Emergency (ER) | payer MEDICAID ==
[~2020-10-15] VITALS: Ht 177.8 cm; Wt 80.0 kg
[2020-10-16] MEDS ORDERED: IPRATROPIUM BROMIDE (0.02%) 0.5MG/2.5ML NEB HHN STA
[2020-10-16] MEDS ORDERED: ALBUTEROL (0.083%) 2.5MG/3ML NEB HHN STA
[2020-10-16] MEDS ORDERED: METHYLPREDNISOLONE SOD SUCC 125 MG/2 ML VIAL IV STA
[2020-10-16 00:34] LABS: BASOPHILS % 0.7 % (0.0-2.0); HEMATOCRIT. 45.6 % (42.0-52.0); HEMOGLOBIN. 14.2 g/dL (14.0-18.0); LYMPHOCYTES % 23.7 % (20.0-50.0); MEAN CORPUSCULAR VOLUME 73.8 fL (80.0-94.0); MEAN PLATELET VOLUME 9.4 fl (7.4-10.4); MONOCYTES % 7.2 % (2.0-8.0); NEUTROPHILS % 64.4 % (40.0-76.0); PLATELET 197 x1000/uL (130-400); RED BLOOD CELL COUNT 6.19 mill/uL (4.7-6.1); RED CELL DISTRIBUTION WIDTH 15.2 % (11.6-14.6)
[2020-10-16 00:40] LABS: CHLORIDE 107 mEq/L (98-107)
[2020-10-16 00:42] LABS: BG BASE EXCESS -1.6 mmol/L (-2.0-2.0); BG CARBOXYHEMOGLOBIN 0.6 % (0.5-1.5); BG DEOXYHEMOGLOBIN 2.6 % (0.0-5.0); BG HCO3 ACT 22.4 mmol/L (22.0-26.0); BG METHEMOGLOBIN 0.2 % (0.0-1.5); BG OXYGEN SATURATION 97.4 % (92.0-98.5); BG OXYHEMOGLOBIN 96.6 % (94.0-97.0); BG PCO2 35.6 mmHg (35.0-45.0); BG PH 7.417 (7.350-7.450); BG PO2 98.4 mmHg (75.0-100.0); BG SAMPLE SITE LEFT RADIAL; BG TOTAL HEMOGLOBIN 13.4 g/dL (12.0-18.0); BG VENT MODE ROOM AIR
[2020-10-16] MEDS ORDERED: GABAPENTIN 300MG CAPSULE PO SCH (00:45)
[2020-10-16] MEDS ORDERED: GABAPENTIN 100MG CAPSULE PO ONE (00:45)
[2020-10-16] MEDS ORDERED: MORPHINE SULFATE 4 MG/ML CPJ (NOT FOR IM USE) IV ONE (04:45)
[2020-10-16] MEDS ORDERED: GUAIFENESIN 200MG/10ML SUGAR FREE UDC PO PRN (05:45)
[2020-10-16] MEDS ORDERED: ACETAMINOPHEN 325MG TABLET PO PRN (05:45)
[2020-10-16] MEDS ORDERED: DOCUSATE SODIUM 100MG CAPSULE PO PRN (05:45)
[2020-10-16] MEDS ORDERED: IPRATROPIUM/ALBUTEROL 0.5-3(2.5)MG/3ML NEB HHN PRN (05:45)
[2020-10-16] MEDS ORDERED: ONDANSETRON HCL 4MG/2ML INJ IV PRN (05:45)
[2020-10-16] MEDS ORDERED: ENOXAPARIN 40MG/0.4ML SYR SUBCUT SCH (05:45)
[2020-10-16] MEDS ORDERED: MAGNESIUM/ALUMINUM HYDROXIDE/SIMETHICONE 30ML UDC PO PRN (05:45)
[2020-10-16] MEDS ORDERED: HYDROCODONE/ACETAMINOPHEN 5/325MG TABLET PO PRN (05:45)
[2020-10-16] MEDS ORDERED: CLONIDINE 0.1MG TABLET PO PRN (05:45)
[2020-10-16] MEDS ORDERED: LORAZEPAM 2MG/ML CPJ IV PRN (05:45)
[2020-10-16] MEDS ORDERED: HYDROMORPHONE HCL/PF 2MG/ML CPJ IV PRN (06:30)
[2020-10-16] MEDS ORDERED: HYDRALAZINE HCL 100MG TABLET PO PRN (06:45)
[2020-10-16] MEDS: AMLODIPINE 10MG TABLET PO SCH ×2 (06:57→09:00)
[2020-10-16] MEDS ORDERED: FUROSEMIDE 40MG/4ML VIAL IV SCH (09:00)
[2020-10-16] MEDS ORDERED: ASPIRIN 81MG EC TABLET PO SCH (09:00)
[2020-10-16] MEDS ORDERED: ENOXAPARIN 30MG/0.3ML SYR SUBCUT SCH (09:00)
[2020-10-16 10:07] VITALS: BP 172/101
== END 2020-10-16 14:28 | disposition home or self-care (01) ==
LOC: ER 22:39 → EDBEDREQTM 10-16 04:49 → EDBEDREQ 10-16 04:49 → CANBEDREQ 10-16 14:16 → ER 10-16 14:28
DX: J44.1 Chronic obstructive pulmonary disease with (acute) exacerbation (principal); E11.9 Type 2 diabetes mellitus without complications; I10 Essential (primary) hypertension; Z98.890 Other specified postprocedural states; Z79.899 Other long term (current) drug therapy
CPT/HCPCS: 36415; 36600; 71045; 80053; 82375; 82805; 83605; 83880; 84484; 85025; 85379; 93005; 93970; 94640; 96372; 96374; 96375; 99285; J1650; J1940; J2270; J2930; Z7610

== ENCOUNTER 2021-09-12 12:08 | Emergency (ER) | payer MEDICAID, OTHER ==
[~2021-09-12] VITALS: Ht 177.8 cm; Wt 69.0 kg
[2021-09-12] MEDS ORDERED: HYDROCODONE/ACETAMINOPHEN 5/325MG TABLET PO ONE (13:00)
[2021-09-12] MEDS ORDERED: KETOROLAC 60MG/2ML VIAL IM ONE (13:00)
[2021-09-12] MEDS ORDERED: IBUP-1523 MT (16:37)
[2021-09-12 17:20] VITALS: BP 122/65
== END 2021-09-12 18:13 | disposition home or self-care (01) ==
LOC: ER 12:08
DX: M25.562 Pain in left knee (principal); G89.29 Other chronic pain; E11.9 Type 2 diabetes mellitus without complications; I10 Essential (primary) hypertension; Z98.890 Other specified postprocedural states; Z79.899 Other long term (current) drug therapy
CPT/HCPCS: 73560; 73590; 96372; 99285; J1885

== ENCOUNTER 2021-10-21 20:40 | Emergency (ER) | payer MEDICAID ==
[~2021-10-21] VITALS: Ht 175.3 cm; Wt 75.0 kg
[~2021-10-21 20:40] MED LIST changes: +IBUP-1523 MT
[2021-10-21] MEDS ORDERED: MORPHINE SULFATE 4 MG/ML CPJ (NOT FOR IM USE) IV STA (21:20)
[2021-10-21] MEDS ORDERED: ONDANSETRON HCL 4MG/2ML INJ IV STA (21:20)
[2021-10-21] MEDS ORDERED: SODIUM CHLORIDE 0.9% 1,000 ML IV ONE (21:30)
[2021-10-21 21:51] LABS: BASOPHILS % 0.8 % (0.0-2.0); EOSINOPHILS % 1.1 % (0.0-5.0); HEMATOCRIT. 32.9 % (42.0-52.0); HEMOGLOBIN. 10.5 g/dL (14.0-18.0); LYMPHOCYTES % 16.4 % (20.0-50.0); MEAN CORPUSCULAR VOLUME 71.8 fL (80.0-94.0); MEAN PLATELET VOLUME 9.5 fl (7.4-10.4); MONOCYTES % 4.1 % (2.0-8.0); NEUTROPHILS % 77.6 % (40.0-76.0); PLATELET 339 x1000/uL (130-400); RED BLOOD CELL COUNT 4.58 mill/uL (4.7-6.1); RED CELL DISTRIBUTION WIDTH 18.1 % (11.6-14.6)
[2021-10-21 22:59] LABS: CHLORIDE 108 mEq/L (98-107)
[2021-10-22] MEDS ORDERED: KETOROLAC 15MG/ML VIAL IV ONE (00:30)
[2021-10-22] MEDS ORDERED: METR500T MT (02:15)
[2021-10-22] MEDS ORDERED: IBUP-2028 MT (02:15)
[2021-10-22] MEDS ORDERED: CIPR500T5 MT (02:15)
[2021-10-22] MEDS ORDERED: HYDR-4001 MT (02:15)
[2021-10-22 02:32] VITALS: BP 136/62
[2021-10-23] MEDS ORDERED: AMLO10TA80 PO (10:46)
[2021-10-23] MEDS ORDERED: HYDR100T26 PO (10:46)
== END 2021-10-22 02:34 | disposition home or self-care (01) ==
LOC: ER 20:40
DX: K80.80 Other cholelithiasis without obstruction (principal); K51.30 Ulcerative (chronic) rectosigmoiditis without complications; I10 Essential (primary) hypertension; E11.9 Type 2 diabetes mellitus without complications; Z90.81 Acquired absence of spleen; Z79.84 Long term (current) use of oral hypoglycemic drugs; Z91.012 Allergy to eggs; Z88.3 Allergy status to other anti-infective agents
CPT/HCPCS: 36415; 74176; 76705; 80053; 83690; 85025; 93005; 96361; 96374; 96375; 99285; J1885; J2270; J2405; J7030

== ENCOUNTER 2021-10-22 03:06 | Emergency (ER) | payer MEDICAID ==
[~2021-10-22] VITALS: Ht 175.3 cm; Wt 68.5 kg
[~2021-10-22 03:06] MED LIST changes: +CIPR500T5 MT; +HYDR-4001 MT; +IBUP-2028 MT; +METR500T MT
[2021-10-22 03:10] VITALS: BP 197/150
[2021-10-22] MEDS ORDERED: MAGNESIUM/ALUMINUM HYDROXIDE/SIMETHICONE 30ML UDC PO STA (03:33)
[2021-10-22] MEDS ORDERED: ONDANSETRON 4MG ODT PO STA (03:33)
[2021-10-22] MEDS ORDERED: VISCOUS LIDOCAINE 2% 15 ML UDC PO STA (03:33)
[2021-10-22] MEDS ORDERED: METOCLOPRAMIDE HCL 10MG TABLET PO ONE (03:45)
[2021-10-22 03:56] LABS: BASOPHILS % 0.4 % (0.0-2.0); EOSINOPHILS % 0.2 % (0.0-5.0); HEMATOCRIT. 32.2 % (42.0-52.0); HEMOGLOBIN. 9.8 g/dL (14.0-18.0); LYMPHOCYTES % 11.2 % (20.0-50.0); MEAN CORPUSCULAR HEMOGLOBIN 22.1 pg (28.0-32.0); MEAN CORPUSCULAR VOLUME 72.8 fL (80.0-94.0); MEAN PLATELET VOLUME 8.8 fl (7.4-10.4); MONOCYTES % 4.4 % (2.0-8.0); NEUTROPHILS % 83.8 % (40.0-76.0); PLATELET 249 x1000/uL (130-400); RED BLOOD CELL COUNT 4.43 mill/uL (4.7-6.1)
[2021-10-22 04:02] LABS: CHLORIDE 109 mEq/L (98-107)
[2021-10-23] MEDS ORDERED: AMLO10TA80 PO (10:46)
[2021-10-23] MEDS ORDERED: HYDR100T26 PO (10:46)
== END 2021-10-22 04:24 | disposition home or self-care (01) ==
LOC: ER 03:06
DX: K80.80 Other cholelithiasis without obstruction (principal); R11.2 Nausea with vomiting, unspecified; E11.9 Type 2 diabetes mellitus without complications; I10 Essential (primary) hypertension; Z79.4 Long term (current) use of insulin; Z88.3 Allergy status to other anti-infective agents; Z91.012 Allergy to eggs
CPT/HCPCS: 36415; 80053; 83690; 85025; 99283; Q0162

== ENCOUNTER 2021-10-22 04:50 | Emergency (ER) | payer MEDICAID ==
[~2021-10-22] VITALS: Ht 175.3 cm; Wt 68.5 kg
[2021-10-22 04:53] VITALS: BP 189/147
[2021-10-23] MEDS ORDERED: HYDR100T26 PO (10:46)
[2021-10-23] MEDS ORDERED: AMLO10TA80 PO (10:46)
== END 2021-10-22 08:24 | disposition home or self-care (01) ==
LOC: ER 04:50
DX: R11.2 Nausea with vomiting, unspecified (principal); F12.10 Cannabis abuse, uncomplicated; E11.9 Type 2 diabetes mellitus without complications; I10 Essential (primary) hypertension; Z79.4 Long term (current) use of insulin; Z88.3 Allergy status to other anti-infective agents; Z91.012 Allergy to eggs
CPT/HCPCS: 99281

== ENCOUNTER 2021-10-22 08:34 | Inpatient (IN) | payer MEDICAID, OTHER ==
[~2021-10-22] VITALS: Ht 172.7 cm; Wt 66.7 kg
[2021-10-22] MEDS ORDERED: KETOROLAC 60MG/2ML VIAL IM ONE (09:30)
[2021-10-22] MEDS ORDERED: DIPHENHYDRAMINE 50MG CAPSULE PO ONE (09:30)
[2021-10-22] MEDS ORDERED: ONDANSETRON HCL 4MG/2ML INJ IV STA (09:39)
[2021-10-22] MEDS ORDERED: FAMOTIDINE 20MG/2ML VIAL IV STA (09:39)
[2021-10-22] MEDS ORDERED: MORPHINE SULFATE 4 MG/ML CPJ (NOT FOR IM USE) IV STA (09:39)
[2021-10-22] MEDS ORDERED: SODIUM CHLORIDE 0.9% 1,000 ML IV ONE ×2 (09:45→13:15)
[2021-10-22] MEDS ORDERED: DIPHENHYDRAMINE 50MG/ML VIAL IV ONE (09:45)
[2021-10-22] MEDS ORDERED: HYDRALAZINE 20MG/ML VIAL IV ONE (09:45)
[2021-10-22 10:22] LABS: BASOPHILS % 0.7 % (0.0-2.0); EOSINOPHILS % 0.3 % (0.0-5.0); HEMATOCRIT. 30.1 % (42.0-52.0); HEMOGLOBIN. 9.3 g/dL (14.0-18.0); LYMPHOCYTES % 12.2 % (20.0-50.0); MEAN CORPUSCULAR HEMOGLOBIN 22.7 pg (28.0-32.0); MEAN CORPUSCULAR VOLUME 73.3 fL (80.0-94.0); MONOCYTES % 5.2 % (2.0-8.0); NEUTROPHILS % 81.6 % (40.0-76.0); RED BLOOD CELL COUNT 4.11 mill/uL (4.7-6.1); RED CELL DISTRIBUTION WIDTH 17.7 % (11.6-14.6)
[2021-10-22 10:24] LABS: CHLORIDE 108 mEq/L (98-107)
[2021-10-22 10:33] LABS: ETHANOL BLOOD < 10 mg/dL
[2021-10-22 11:32] LABS: PLATELET 239 x1000/uL (130-400)
[2021-10-22 14:14] LABS: CLARITY URINE CLEAR (CLEAR); COLOR URINE YELLOW (YELLOW); KETONES URINE TRACE (NEGATIVE); LEUKOCYTE ESTERASE URINE NEGATIVE (NEGATIVE); NITRITE URINE NEGATIVE (NEGATIVE); OCCULT BLOOD URINE TRACE (NEGATIVE); PH URINE 5.5 (4.5-8.0); PROTEIN URINE 3+ (NEGATIVE); SPECIFIC GRAVITY URINE 1.015 (1.005-1.030); UROBILINOGEN URINE 0.2 E.U./dL (0.2-1.0)
[2021-10-22] MEDS ORDERED: CLONIDINE 0.1MG TABLET PO NR (14:30)
[2021-10-22] MEDS ORDERED: HYDRALAZINE HCL 50MG TABLET PO NR (14:30)
[2021-10-22 14:36] LABS: *AMPHETAMINES SCREEN URINE NEGATIVE (NEGATIVE); *BARBITURATES SCREEN URINE NEGATIVE (NEGATIVE); *BENZODIAZEPINES SCREEN URINE NEGATIVE (NEGATIVE); *COCAINE SCREEN URINE PRESUMTIVE POSITIVE (NEGATIVE); CANNABINOID URINE SCREEN NEGATIVE (NEGATIVE); METHADONE URINE SCREEN NEGATIVE (NEGATIVE); OPIATES URINE SCREEN PRESUMTIVE POSITIVE (NEGATIVE); PHENCYCLIDINE URINE SCREEN NEGATIVE (NEGATIVE)
[2021-10-22 16:00] VITALS: BP 167/91
[2021-10-22] MEDS: AMLODIPINE 10MG TABLET PO SCH (17:21)
[2021-10-22] MEDS ORDERED: TRAMADOL 50MG TABLET PO PRN (18:30)
[2021-10-22 20:00] VITALS: BP 114/57
[2021-10-22] MEDS ORDERED: NALOXONE HCL 0.4MG/ML VIAL IV PRN (21:45)
[2021-10-22] MEDS: HYDROCODONE/ACETAMINOPHEN 10/325MG TABLET PO PRN (21:55)
[2021-10-22] MEDS: FAMOTIDINE 20MG TABLET PO SCH (21:56)
[2021-10-22] MEDS: HYDRALAZINE HCL 100MG TABLET PO SCH (21:56)
[2021-10-22] MEDS: ONDANSETRON HCL 4MG/2ML INJ IV PRN (22:01)
[2021-10-23] VITALS: BP 132/69
[2021-10-23] MEDS: HYDROCODONE/ACETAMINOPHEN 10/325MG TABLET PO PRN ×3 (03:17→17:39)
[2021-10-23 04:00] VITALS: BP 109/55
[2021-10-23] MEDS: HYDRALAZINE HCL 100MG TABLET PO SCH ×3 (05:53→21:31)
[2021-10-23 08:00] VITALS: BP 135/72
[2021-10-23] MEDS: AMLODIPINE 10MG TABLET PO SCH (09:12)
[2021-10-23] MEDS ORDERED: HYDR100T26 PO (10:46)
[2021-10-23] MEDS ORDERED: AMLO10TA80 PO (10:46)
[2021-10-23] MEDS: ONDANSETRON HCL 4MG/2ML INJ IV PRN ×2 (11:07→17:40)
[2021-10-23 12:00] VITALS: BP 118/61
[2021-10-23 16:00] VITALS: BP 117/63
[2021-10-23 20:00] VITALS: BP 106/53
[2021-10-23] MEDS: FAMOTIDINE 20MG TABLET PO SCH (21:00)
[2021-10-24] VITALS: BP 113/61
[2021-10-24] MEDS: ONDANSETRON HCL 4MG/2ML INJ IV PRN ×2 (00:30→09:27)
[2021-10-24] MEDS: HYDROCODONE/ACETAMINOPHEN 10/325MG TABLET PO PRN ×2 (01:12→08:34)
[2021-10-24 04:00] VITALS: BP 109/50
[2021-10-24] MEDS: HYDRALAZINE HCL 100MG TABLET PO SCH (05:26)
[2021-10-24 08:00] VITALS: BP 138/74
[2021-10-24] MEDS: AMLODIPINE 10MG TABLET PO SCH (08:33)
[2021-10-24 09:47] VITALS: BP 138/74
== END 2021-10-24 11:00 | disposition home or self-care (01) | DRG 470 ==
LOC: ER 08:34 → OBSVTOIN 11:04 → 8WST 11:04 → ENRESERV 13:49
PROVIDERS: ADMIT Internal Medicine; ATTEND Internal Medicine
DX: I12.9 Hypertensive chronic kidney disease with stage 1 through stage 4 chronic kidney disease, or unspecified chronic kidney disease (principal); N17.0 Acute kidney failure with tubular necrosis; E44.0 Moderate protein-calorie malnutrition; E11.43 Type 2 diabetes mellitus with diabetic autonomic (poly)neuropathy; E87.8 Other disorders of electrolyte and fluid balance, not elsewhere classified; D64.9 Anemia, unspecified; E11.22 Type 2 diabetes mellitus with diabetic chronic kidney disease; I16.0 Hypertensive urgency; F12.90 Cannabis use, unspecified, uncomplicated; F14.90 Cocaine use, unspecified, uncomplicated; N18.9 Chronic kidney disease, unspecified; K80.20 Calculus of gallbladder without cholecystitis without obstruction; Z79.4 Long term (current) use of insulin; Z83.3 Family history of diabetes mellitus; Z90.81 Acquired absence of spleen
CPT/HCPCS: 36415; 80053; 80305; 80320; 81003; 82962; 85025; 93005; 99291; J0360; J1200; J1885; J2270; J2405; J3490; J7030; G0480

== ENCOUNTER 2022-04-02 07:29 | Inpatient (IN) | payer MEDICAID ==
[~2022-04-02] VITALS: Ht 170.2 cm; Wt 70.3 kg
[~2022-04-02 07:29] MED LIST changes: +AMLO10TA80 PO; +AMOX1TAB15 MT; -CARV6.2548 PO; -CIPR500T5 MT; +DOXY100C5 MT; -GABA-533 PO; +HYDR100T26 PO; -HYDR25TA MT; -IBUP-1523 MT; -IBUP-2028 MT; -IBUP-2030 MT; -METF-414; -METR500T MT
[2022-04-02] MEDS ORDERED: VANCOMYCIN 1G PREMIX 200 ML IV ONE (08:00)
[2022-04-02 08:45] LABS: BASOPHILS % 0.8 % (0.0-2.0); EOSINOPHILS % 4.8 % (0.0-5.0); HEMATOCRIT. 37.9 % (42.0-52.0); HEMOGLOBIN. 11.5 g/dL (14.0-18.0); LYMPHOCYTES % 28.5 % (20.0-50.0); MEAN CORPUSCULAR HEMOGLOBIN 21.5 pg (28.0-32.0); MEAN PLATELET VOLUME 8.6 fl (7.4-10.4); MONOCYTES % 8.5 % (2.0-8.0); NEUTROPHILS % 57.4 % (40.0-76.0); PLATELET 208 x1000/uL (130-400); RED BLOOD CELL COUNT 5.34 mill/uL (4.7-6.1); RED CELL DISTRIBUTION WIDTH 16.9 % (11.6-14.6)
[2022-04-02 08:50] LABS: INR 0.9; PROTHROMBIN TIME 10.1 sec (9.6-11.0)
[2022-04-02 08:56] LABS: CHLORIDE 108 mEq/L (98-107)
[2022-04-02] MEDS ORDERED: CLINDAMYCIN 600MG PREMIX 50 ML IV SCH (10:00)
[2022-04-02] MEDS ORDERED: CLINDAMYCIN 600 MG in DEXTROSE 5% WATER 50 ML IV ONE (10:00)
[2022-04-02] MEDS ORDERED: CLONIDINE 0.1MG TABLET PO PRN (12:45)
[2022-04-02] MEDS ORDERED: GUAIFENESIN 200MG/10ML SUGAR FREE UDC PO PRN (12:45)
[2022-04-02] MEDS ORDERED: ACETAMINOPHEN 325MG TABLET PO PRN ×2 (12:45)
[2022-04-02] MEDS ORDERED: IPRATROPIUM/ALBUTEROL 0.5-3(2.5)MG/3ML NEB HHN SCH (12:45)
[2022-04-02] MEDS ORDERED: HYDRALAZINE 20MG/ML VIAL IV PRN (12:45)
[2022-04-02] MEDS ORDERED: MAGNESIUM/ALUMINUM HYDROXIDE/SIMETHICONE 30ML UDC PO PRN (12:45)
[2022-04-02] MEDS ORDERED: NA PHOS,M-B/NA PHOS,DI-BA ENEMA 118ML PR PRN (12:45)
[2022-04-02] MEDS ORDERED: DOCUSATE SODIUM 100MG CAPSULE PO PRN (12:45)
[2022-04-02] MEDS ORDERED: ONDANSETRON HCL 4MG/2ML INJ IV PRN (12:45)
[2022-04-02] MEDS ORDERED: LINEZOLID 600 MG PREMIX 300 ML IV SCH (13:00)
[2022-04-02] MEDS ORDERED: PIPERACILLIN/TAZOBACTAM 3.375 G in DEXTROSE 5% WATER 50 ML IV SCH (14:00)
[2022-04-02 16:00] VITALS: BP 142/79
[2022-04-02] MEDS ORDERED: DEXTROSE 50% WATER 50ML SYRINGE IV PRN (16:15)
[2022-04-02] MEDS: INSULIN LISPRO 100 UNITS/ML SUBCUT SCH ×2 (16:44→21:00)
[2022-04-02] MEDS: BLOOD SUGAR DIAGNOSTIC STRIP TEST SCH ×2 (16:44→21:02)
[2022-04-02 18:43] VITALS: BP 142/79
[2022-04-02] MEDS ORDERED: MEDICATION NOT ON FORMULARY EA (Gabapentin 1 TAB) MT SCH (19:00)
[2022-04-02 19:56] LABS: TOTAL IRON BINDING CAPACITY 257 ug/dL (250-450)
[2022-04-02 20:00] VITALS: BP 147/85
[2022-04-02] MEDS: GABAPENTIN 300MG CAPSULE PO SCH (21:02)
[2022-04-02] MEDS: FAMOTIDINE 20MG TABLET PO SCH (21:02)
[2022-04-02] MEDS: AMLODIPINE 10MG TABLET PO SCH (21:02)
[2022-04-02] MEDS: ATORVASTATIN CALCIUM 20MG TABLET PO SCH (21:02)
[2022-04-02] MEDS: HYDRALAZINE HCL 100MG TABLET PO SCH (21:05)
[2022-04-02] MEDS: ENOXAPARIN 30MG/0.3ML SYR SUBCUT SCH (21:06)
[2022-04-02] MEDS: PIPERACILLIN/TAZOBACTAM 3.375G in DEXT 5% WATER 50ML IV SCH (23:24)
[2022-04-03] VITALS: BP 137/69
[2022-04-03 01:01] LABS: CREATINE KINASE 68 IU/L (39-308)
[2022-04-03] MEDS: LINEZOLID 600 MG PREMIX 300 ML IV SCH ×2 (03:17→12:16)
[2022-04-03 06:00] VITALS: BP 115/57
[2022-04-03] MEDS: HYDRALAZINE HCL 100MG TABLET PO SCH ×3 (06:11→21:37)
[2022-04-03] MEDS: PIPERACILLIN/TAZOBACTAM 3.375G in DEXT 5% WATER 50ML IV SCH ×3 (06:11→21:43)
[2022-04-03] MEDS: BLOOD SUGAR DIAGNOSTIC STRIP TEST SCH ×4 (06:13→21:38)
[2022-04-03] MEDS: INSULIN LISPRO 100 UNITS/ML SUBCUT SCH ×4 (06:15→21:43)
[2022-04-03 07:28] LABS: BASOPHILS % 0.7 % (0.0-2.0); EOSINOPHILS % 4.3 % (0.0-5.0); HEMATOCRIT. 37.6 % (42.0-52.0); HEMOGLOBIN. 11.5 g/dL (14.0-18.0); LYMPHOCYTES % 34.6 % (20.0-50.0); MEAN CORPUSCULAR HEMOGLOBIN 21.4 pg (28.0-32.0); MEAN CORPUSCULAR VOLUME 70.2 fL (80.0-94.0); MEAN PLATELET VOLUME 9.1 fl (7.4-10.4); MONOCYTES % 7.8 % (2.0-8.0); NEUTROPHILS % 52.6 % (40.0-76.0); PLATELET 208 x1000/uL (130-400); RED BLOOD CELL COUNT 5.36 mill/uL (4.7-6.1); RED CELL DISTRIBUTION WIDTH 16.9 % (11.6-14.6)
[2022-04-03 08:00] VITALS: BP 98/50
[2022-04-03] MEDS: AMLODIPINE 10MG TABLET PO SCH (09:00)
[2022-04-03 10:19] LABS: CLARITY URINE CLEAR (CLEAR); COLOR URINE YELLOW (YELLOW); KETONES URINE NEGATIVE (NEGATIVE); LEUKOCYTE ESTERASE URINE NEGATIVE (NEGATIVE); NITRITE URINE NEGATIVE (NEGATIVE); OCCULT BLOOD URINE NEGATIVE (NEGATIVE); PH URINE 6.5 (4.5-8.0); PROTEIN URINE 2+ (NEGATIVE); SPECIFIC GRAVITY URINE 1.015 (1.005-1.030); UROBILINOGEN URINE 0.2 E.U./dL (0.2-1.0)
[2022-04-03] MEDS: GABAPENTIN 300MG CAPSULE PO SCH (10:22)
[2022-04-03] MEDS: ATORVASTATIN CALCIUM 20MG TABLET PO SCH (10:23)
[2022-04-03 10:40] LABS: CHLORIDE 108 mEq/L (98-107)
[2022-04-03 12:00] VITALS: BP 130/58
[2022-04-03 14:54] LABS: *AMPHETAMINES SCREEN URINE NEGATIVE (NEGATIVE); *BARBITURATES SCREEN URINE NEGATIVE (NEGATIVE); *BENZODIAZEPINES SCREEN URINE NEGATIVE (NEGATIVE); *COCAINE SCREEN URINE NEGATIVE (NEGATIVE); METHADONE URINE SCREEN NEGATIVE (NEGATIVE); OPIATES URINE SCREEN NEGATIVE (NEGATIVE)
[2022-04-03 14:58] LABS: CANNABINOID URINE SCREEN NEGATIVE (NEGATIVE); PHENCYCLIDINE URINE SCREEN NEGATIVE (NEGATIVE)
[2022-04-03 15:25] LABS: T4 FREE 1.05 ng/dL (0.76-1.46)
[2022-04-03 15:36] LABS: HDL CHOLESTEROL 41 mg/dL (40-59); LDL CHOLESTEROL 85 mg/dL (5-100); PHOSPHORUS 2.8 mg/dL (2.5-4.9)
[2022-04-03] MEDS: HYDROCODONE/ACETAMINOPHEN 5/325MG TABLET PO NR ×2 (15:36→21:38)
[2022-04-03] MEDS: ENOXAPARIN 30MG/0.3ML SYR SUBCUT SCH (15:36)
[2022-04-03 16:00] VITALS: BP 157/92
[2022-04-03] MEDS ORDERED: NALOXONE HCL 0.4MG/ML VIAL IV PRN (16:15)
[2022-04-03 20:00] VITALS: BP 120/64
[2022-04-03] MEDS: GABAPENTIN 400MG CAPSULE PO SCH (21:37)
[2022-04-03] MEDS: FAMOTIDINE 20MG TABLET PO SCH (21:37)
[2022-04-04] VITALS: BP 135/68
[2022-04-04] MEDS: LINEZOLID 600 MG PREMIX 300 ML IV SCH ×2 (01:00→13:14)
[2022-04-04 04:00] VITALS: BP 116/61
[2022-04-04] MEDS: HYDROCODONE/ACETAMINOPHEN 5/325MG TABLET PO PRN ×3 (04:15→21:42)
[2022-04-04] MEDS: PIPERACILLIN/TAZOBACTAM 3.375G in DEXT 5% WATER 50ML IV SCH ×3 (06:00→21:08)
[2022-04-04] MEDS: HYDRALAZINE HCL 100MG TABLET PO SCH ×3 (06:45→21:09)
[2022-04-04] MEDS: INSULIN LISPRO 100 UNITS/ML SUBCUT SCH ×4 (06:46→21:10)
[2022-04-04] MEDS: BLOOD SUGAR DIAGNOSTIC STRIP TEST SCH ×4 (06:47→21:00)
[2022-04-04 08:00] VITALS: BP 135/70
[2022-04-04] MEDS: GABAPENTIN 400MG CAPSULE PO SCH ×2 (09:25→21:08)
[2022-04-04] MEDS: AMLODIPINE 10MG TABLET PO SCH (09:25)
[2022-04-04] MEDS: ATORVASTATIN CALCIUM 20MG TABLET PO SCH (09:26)
[2022-04-04] MEDS ORDERED: LIDOCAINE HCL 1% 30ML VIAL (10MG/ML) ONE (11:56)
[2022-04-04] MEDS ORDERED: HYDRALAZINE 10 MG in SODIUM CHLORIDE 0.9% 49.5 ML IV PRN (12:00)
[2022-04-04] MEDS ORDERED: AMOX1TAB16 MT ×2 (12:36)
[2022-04-04] MEDS ORDERED: SULF1TAB48 MT ×2 (12:36)
[2022-04-04] MEDS ORDERED: HYDR-4009 MT (12:36)
[2022-04-04 16:00] VITALS: BP 142/78
[2022-04-04] MEDS: ENOXAPARIN 30MG/0.3ML SYR SUBCUT SCH (16:34)
[2022-04-04 20:00] VITALS: BP 107/50
[2022-04-04] MEDS: FAMOTIDINE 20MG TABLET PO SCH (21:08)
[2022-04-05 00:05] VITALS: BP 113/59
[2022-04-05] MEDS: LINEZOLID 600 MG PREMIX 300 ML IV SCH (01:55)
[2022-04-05 04:00] VITALS: BP 125/72
[2022-04-05] MEDS: PIPERACILLIN/TAZOBACTAM 3.375G in DEXT 5% WATER 50ML IV SCH (05:05)
[2022-04-05] MEDS: HYDROCODONE/ACETAMINOPHEN 5/325MG TABLET PO PRN (05:14)
[2022-04-05] MEDS: HYDRALAZINE HCL 100MG TABLET PO SCH (06:03)
[2022-04-05] MEDS: BLOOD SUGAR DIAGNOSTIC STRIP TEST SCH (06:43)
[2022-04-05] MEDS: INSULIN LISPRO 100 UNITS/ML SUBCUT SCH (07:50)
[2022-04-05 08:00] VITALS: BP 117/65
[2022-04-05] MEDS: AMLODIPINE 10MG TABLET PO SCH (09:53)
[2022-04-05] MEDS: GABAPENTIN 400MG CAPSULE PO SCH (09:53)
[2022-04-05] MEDS: ATORVASTATIN CALCIUM 20MG TABLET PO SCH (09:53)
== END 2022-04-05 10:32 | disposition left against medical advice (07) | DRG 317 ==
LOC: ER 07:29 → 4WST 10:50 → EDBEDREQTM 11:01 → EDBEDREQ 11:01 → ENRESERV 12:50 → 6EST 04-04 11:36
PROVIDERS: ADMIT Internal Medicine; ATTEND Internal Medicine
PROC: 0LBW0ZZ Excision of Left Foot Tendon, Open Approach (ICD-10-PCS; principal; 2022-04-03)
PROC: 02HV33Z Insertion of Infusion Device into Superior Vena Cava, Percutaneous Approach (ICD-10-PCS; 2022-04-04)
PROC: B548ZZA Ultrasonography of Superior Vena Cava, Guidance (ICD-10-PCS; 2022-04-04)
PROC: B5181ZA Fluoroscopy of Superior Vena Cava using Low Osmolar Contrast, Guidance (ICD-10-PCS; 2022-04-04)
DX: E11.621 Type 2 diabetes mellitus with foot ulcer (principal); M86.9 Osteomyelitis, unspecified; N17.9 Acute kidney failure, unspecified; E11.42 Type 2 diabetes mellitus with diabetic polyneuropathy; E11.22 Type 2 diabetes mellitus with diabetic chronic kidney disease; E44.1 Mild protein-calorie malnutrition; L97.529 Non-pressure chronic ulcer of other part of left foot with unspecified severity; D50.9 Iron deficiency anemia, unspecified; E11.69 Type 2 diabetes mellitus with other specified complication; E78.00 Pure hypercholesterolemia, unspecified; I12.9 Hypertensive chronic kidney disease with stage 1 through stage 4 chronic kidney disease, or unspecified chronic kidney disease; M77.30 Calcaneal spur, unspecified foot; I16.0 Hypertensive urgency; F14.90 Cocaine use, unspecified, uncomplicated; E78.5 Hyperlipidemia, unspecified; N18.32 Chronic kidney disease, stage 3b; Z53.29 Procedure and treatment not carried out because of patient's decision for other reasons; Z91.199 Patient's noncompliance with other medical treatment and regimen due to unspecified reason; Z88.1 Allergy status to other antibiotic agents; Z91.012 Allergy to eggs; Z90.81 Acquired absence of spleen; Z83.3 Family history of diabetes mellitus
CPT/HCPCS: 36415; 36573; 73630; 73721; 76770; 80048; 80053; 80061; 80305; 81003; 82550; 82728; 82962; 83036; 83540; 83550; 83735; 84100; 84145; 84439; 84443; 84481; 85025; 85651; 87070; 87077; 87186; 93970; 94640; 99285; C1725; J0360; J1650; J1815; J2020; J2543; J3370; J3490; J7060

== ENCOUNTER 2022-04-10 14:11 | Inpatient (IN) | payer MEDICAID ==
[~2022-04-10] VITALS: Ht 177.8 cm; Wt 77.1 kg
[2022-04-10] MEDS ORDERED: PIPERACILLIN/TAZ 3.375G PREMIX 50 ML IV ONE (16:15)
[2022-04-10 17:33] LABS: BASOPHILS % 0.9 % (0.0-2.0); EOSINOPHILS % 6.5 % (0.0-5.0); HEMATOCRIT. 31.9 % (42.0-52.0); HEMOGLOBIN. 9.8 g/dL (14.0-18.0); LYMPHOCYTES % 28.2 % (20.0-50.0); MEAN CORPUSCULAR HEMOGLOBIN 21.9 pg (28.0-32.0); MEAN CORPUSCULAR VOLUME 71.1 fL (80.0-94.0); MEAN PLATELET VOLUME 8.6 fl (7.4-10.4); MONOCYTES % 9.5 % (2.0-8.0); NEUTROPHILS % 54.9 % (40.0-76.0); PLATELET 176 x1000/uL (130-400); RED BLOOD CELL COUNT 4.49 mill/uL (4.7-6.1); RED CELL DISTRIBUTION WIDTH 16.9 % (11.6-14.6)
[2022-04-10 17:44] LABS: CHLORIDE 111 mEq/L (98-107)
[2022-04-10] MEDS ORDERED: DEXTROSE 50% WATER 50ML SYRINGE IV PRN (23:45)
[2022-04-10] MEDS ORDERED: CLONIDINE 0.1MG TABLET PO PRN (23:45)
[2022-04-10] MEDS ORDERED: HYDROCODONE/ACETAMINOPHEN 5/325MG TABLET PO PRN (23:51)
[2022-04-11] MEDS ORDERED: ASPIRIN (01:59)
[2022-04-11] MEDS ORDERED: INSULIN (01:59)
[2022-04-11] MEDS ORDERED: GABA-532 MT (01:59)
[2022-04-11] MEDS ORDERED: INFLUENZA VACCINE 05/PF 0.5 ML SYRINGE IM ONE (02:00)
[2022-04-11 02:01] VITALS: BP 137/73
[2022-04-11] MEDS: INSULIN LISPRO 100 UNITS/ML SUBCUT SCH ×4 (07:27→21:00)
[2022-04-11] MEDS: BLOOD SUGAR DIAGNOSTIC STRIP TEST SCH ×4 (07:27→21:24)
[2022-04-11 08:00] VITALS: BP 147/81
[2022-04-11 08:32] VITALS: BP 147/81
[2022-04-11] MEDS ORDERED: NALOXONE HCL 0.4MG/ML VIAL IV PRN (11:00)
[2022-04-11 11:42] VITALS: BP 142/74
[2022-04-11] MEDS ORDERED: PIPERACILLIN/TAZOBACTAM 3.375 G in DEXTROSE 5% WATER 50 ML IV SCH (12:00)
[2022-04-11] MEDS: GABAPENTIN 300MG CAPSULE PO SCH ×2 (13:02→21:25)
[2022-04-11] MEDS ORDERED: GABAPENTIN 300MG CAPSULE PO SCH (14:00)
[2022-04-11] MEDS: MORPHINE SULFATE 2 MG/ML CPJ (NOT FOR IM USE) IV PRN ×2 (14:12→23:20)
[2022-04-11 15:31] VITALS: BP 130/76
[2022-04-11 20:00] VITALS: BP 154/88
[2022-04-11] MEDS ORDERED: CEFEPIME 2,000 MG in DEXT 5% WATER 100 ML IV SCH (22:00)
[2022-04-11] MEDS: AMPICILLIN SOD/SULBACTAM NA 3 G in SODIUM CHLORIDE 0.9% 100 ML IV SCH (23:34)
[2022-04-12] VITALS: BP 141/78
[2022-04-12] MEDS: MORPHINE SULFATE 2 MG/ML CPJ (NOT FOR IM USE) IV PRN ×3 (03:21→21:26)
[2022-04-12 04:00] VITALS: BP 141/77
[2022-04-12] MEDS: GABAPENTIN 300MG CAPSULE PO SCH ×3 (05:57→21:20)
[2022-04-12] MEDS: BLOOD SUGAR DIAGNOSTIC STRIP TEST SCH ×3 (06:52→21:00)
[2022-04-12] MEDS: INSULIN LISPRO 100 UNITS/ML SUBCUT SCH ×3 (07:50→21:00)
[2022-04-12 08:00] VITALS: BP 141/78
[2022-04-12] MEDS: AMPICILLIN SOD/SULBACTAM NA 3 G in SODIUM CHLORIDE 0.9% 100 ML IV SCH ×2 (08:22→21:20)
[2022-04-12 12:00] VITALS: BP 152/87
[2022-04-12] MEDS ORDERED: DIPHENHYDRAMINE 25MG CAPSULE PO PRN (15:45)
[2022-04-12 16:00] VITALS: BP 145/82
[2022-04-12 20:00] VITALS: BP 139/77
[2022-04-12] MEDS: DIPHENHYDRAMINE 50MG/ML VIAL IV PRN (21:25)
[2022-04-13] VITALS: BP 136/71
[2022-04-13 04:00] VITALS: BP 138/72
[2022-04-13] MEDS: MORPHINE SULFATE 2 MG/ML CPJ (NOT FOR IM USE) IV PRN ×2 (05:29→14:30)
[2022-04-13] MEDS: DIPHENHYDRAMINE 50MG/ML VIAL IV PRN ×2 (05:29→14:30)
[2022-04-13] MEDS: GABAPENTIN 300MG CAPSULE PO SCH ×2 (05:37→14:22)
[2022-04-13] MEDS: INSULIN LISPRO 100 UNITS/ML SUBCUT SCH ×3 (07:50→17:39)
[2022-04-13 08:00] VITALS: BP 144/78
[2022-04-13] MEDS: BLOOD SUGAR DIAGNOSTIC STRIP TEST SCH ×3 (08:00→17:39)
[2022-04-13] MEDS: AMPICILLIN SOD/SULBACTAM NA 3 G in SODIUM CHLORIDE 0.9% 100 ML IV SCH (09:02)
[2022-04-13 12:00] VITALS: BP 133/70
[2022-04-13] MEDS ORDERED: HYDR-4001 MT (15:20)
[2022-04-13] MEDS ORDERED: AMOX1TAB16 PO ×2 (15:20)
[2022-04-13 16:00] VITALS: BP 141/75
[2022-04-13 16:26] VITALS: BP 133/70
== END 2022-04-13 20:14 | disposition home or self-care (01) | DRG 344 ==
LOC: ER 14:11 → 6EST 17:20 → EDBEDREQTM 17:23 → EDBEDREQ 17:23 → ENRESERV 19:30
PROVIDERS: ADMIT Internal Medicine; ATTEND Internal Medicine
DX: E11.69 Type 2 diabetes mellitus with other specified complication (principal); M86.8X7 Other osteomyelitis, ankle and foot; N17.9 Acute kidney failure, unspecified; E11.21 Type 2 diabetes mellitus with diabetic nephropathy; E44.0 Moderate protein-calorie malnutrition; E11.621 Type 2 diabetes mellitus with foot ulcer; D63.1 Anemia in chronic kidney disease; E11.40 Type 2 diabetes mellitus with diabetic neuropathy, unspecified; L97.529 Non-pressure chronic ulcer of other part of left foot with unspecified severity; D50.9 Iron deficiency anemia, unspecified; D72.819 Decreased white blood cell count, unspecified; E11.22 Type 2 diabetes mellitus with diabetic chronic kidney disease; E78.00 Pure hypercholesterolemia, unspecified; I12.9 Hypertensive chronic kidney disease with stage 1 through stage 4 chronic kidney disease, or unspecified chronic kidney disease; I16.0 Hypertensive urgency; E78.5 Hyperlipidemia, unspecified; N18.9 Chronic kidney disease, unspecified; F14.90 Cocaine use, unspecified, uncomplicated; Z88.8 Allergy status to other drugs, medicaments and biological substances; Z79.899 Other long term (current) drug therapy; Z68.24 Body mass index [BMI] 24.0-24.9, adult; Z79.4 Long term (current) use of insulin; Z89.412 Acquired absence of left great toe; Z90.81 Acquired absence of spleen; Z83.3 Family history of diabetes mellitus
CPT/HCPCS: 36415; 80053; 82962; 83036; 83605; 85025; 85651; 97162; 97535; 99285; C1893; J0295; J0692; J1200; J1815; J2270; J2543; J7050; J7060

== ENCOUNTER 2022-10-24 08:46 | Emergency (ER) | payer MEDICAID ==
[~2022-10-24] VITALS: Ht 180.3 cm; Wt 72.0 kg
[~2022-10-24 08:46] MED LIST changes: +ASPIRIN; +GABA-532 MT; -HYDR-4001 MT; +INSULIN
[2022-10-24] MEDS ORDERED: ONDANSETRON HCL 4MG/2ML INJ IV ONE (09:00)
[2022-10-24] MEDS ORDERED: FAMOTIDINE 20MG/2ML VIAL IV ONE (09:00)
[2022-10-24] MEDS ORDERED: SODIUM CHLORIDE 0.9% 1,000 ML IV ONE (09:00)
[2022-10-24] MEDS ORDERED: KETOROLAC 30MG/ML VIAL IV ONE (09:45)
[2022-10-24] MEDS ORDERED: MAGNESIUM/ALUMINUM HYDROXIDE/SIMETHICONE 30ML UDC PO ONE (09:45)
[2022-10-24 09:54] LABS: BASOPHILS % 1.2 % (0.0-2.0); EOSINOPHILS % 3.2 % (0.0-5.0); HEMOGLOBIN. 12.9 g/dL (14.0-18.0); MEAN CORPUSCULAR HEMOGLOBIN 22.4 pg (28.0-32.0); MEAN CORPUSCULAR VOLUME 73.1 fL (80.0-94.0); MONOCYTES % 7.4 % (2.0-8.0); NEUTROPHILS % 69.2 % (40.0-76.0); PLATELET 190 x1000/uL (130-400); RED BLOOD CELL COUNT 5.74 mill/uL (4.7-6.1); RED CELL DISTRIBUTION WIDTH 17.2 % (11.6-14.6)
[2022-10-24 10:00] LABS: PROTHROMBIN TIME 10.6 sec (9.6-11.0)
[2022-10-24 10:03] LABS: CHLORIDE 109 mEq/L (98-107)
[2022-10-24 10:10] LABS: ETHANOL BLOOD < 10 mg/dL (-10)
[2022-10-24 11:43] LABS: CLARITY URINE CLEAR (CLEAR); COLOR URINE YELLOW (YELLOW); KETONES URINE NEGATIVE (NEGATIVE); LEUKOCYTE ESTERASE URINE NEGATIVE (NEGATIVE); NITRITE URINE NEGATIVE (NEGATIVE); OCCULT BLOOD URINE 1+ (NEGATIVE); PH URINE 5.5 (4.5-8.0); PROTEIN URINE 3+ (NEGATIVE); SPECIFIC GRAVITY URINE 1.013 (1.005-1.030); UROBILINOGEN URINE 0.2 E.U./dL (0.2-1.0)
[2022-10-24 12:55] VITALS: BP 177/90
== END 2022-10-24 12:59 | disposition home or self-care (01) ==
LOC: ER 08:46
DX: R10.13 Epigastric pain (principal); F14.10 Cocaine abuse, uncomplicated; I10 Essential (primary) hypertension; E78.00 Pure hypercholesterolemia, unspecified; E11.9 Type 2 diabetes mellitus without complications; Z91.012 Allergy to eggs; Z88.1 Allergy status to other antibiotic agents; Z79.899 Other long term (current) drug therapy
CPT/HCPCS: 36415; 74176; 80053; 80320; 81003; 83605; 83690; 84484; 85025; 85610; 96361; 96374; 96375; 99285; J1885; J2405; J3490; J7030; Z7610; G0480

== ENCOUNTER 2022-11-24 15:59 | Emergency (ER) | payer MEDICAID ==
[~2022-11-24] VITALS: Ht 177.8 cm; Wt 82.0 kg
[2022-11-24 16:04] VITALS: TEMP 98.2; O2SAT 100
[2022-11-24] MEDS ORDERED: TETRACAINE 0.5% OPHTH DROPS 4ML BOTHEYE ONE (16:30)
[2022-11-24] MEDS ORDERED: ONDANSETRON HCL 4MG/2ML INJ IV ONE (16:30)
[2022-11-24] MEDS ORDERED: FLUORESCEIN SODIUM 1MG/STRIP BOTHEYE ONE (16:30)
[2022-11-24] MEDS ORDERED: MORPHINE SULFATE 4 MG/ML CPJ (NOT FOR IM USE) IV ONE (16:30)
[2022-11-24 17:05] LABS: BASOPHILS % 0.7 % (0.0-2.0); EOSINOPHILS % 6.5 % (0.0-5.0); HEMATOCRIT. 36.9 % (42.0-52.0); HEMOGLOBIN. 11.4 g/dL (14.0-18.0); LYMPHOCYTES % 17.2 % (20.0-50.0); MEAN CORPUSCULAR HEMOGLOBIN 22.4 pg (28.0-32.0); MEAN CORPUSCULAR VOLUME 72.2 fL (80.0-94.0); MEAN PLATELET VOLUME 8.5 fl (7.4-10.4); MONOCYTES % 8.1 % (2.0-8.0); NEUTROPHILS % 67.5 % (40.0-76.0); PLATELET 191 x1000/uL (130-400)
[2022-11-24 17:09] LABS: CHLORIDE 110 mEq/L (98-107)
[2022-11-24] MEDS ORDERED: HYDROCODONE/ACETAMINOPHEN 5/325MG TABLET PO NR (18:30)
[2022-11-24] MEDS ORDERED: AMPICILLIN SOD/SULBACTAM NA 1.5 G in SODIUM CHLORIDE 0.9% 50 ML IV SCH (18:45)
[2022-11-24 21:45] VITALS: BP 178/95; PULSE 68; RESP 13
[2022-11-24] MEDS ORDERED: NAPR-681 MT (23:08)
[2022-11-24] MEDS ORDERED: AMOX1TAB16 MT (23:08)
[2022-11-24] MEDS ORDERED: ACET-2708 MT (23:09)
== END 2022-11-24 23:45 | disposition home or self-care (01) ==
LOC: ER 15:59 → CANBEDREQ 18:58 → ER 23:45
DX: S02.85XA Fracture of orbit, unspecified, initial encounter for closed fracture (principal); S06.9XAA Unspecified intracranial injury with loss of consciousness status unknown, initial encounter; E78.00 Pure hypercholesterolemia, unspecified; I10 Essential (primary) hypertension; E11.9 Type 2 diabetes mellitus without complications; N28.9 Disorder of kidney and ureter, unspecified; Z20.822 Contact with and (suspected) exposure to COVID-19; Z88.1 Allergy status to other antibiotic agents; Z91.012 Allergy to eggs; Z79.899 Other long term (current) drug therapy; Z98.890 Other specified postprocedural states; Y04.0XXA Assault by unarmed brawl or fight, initial encounter; Y93.89 Activity, other specified; Y92.89 Other specified places as the place of occurrence of the external cause; Y99.8 Other external cause status
CPT/HCPCS: 80053; 85025; 36415; 70450; 70486; 96365; 96366; 96375; 99285; 87426; J0295; J2405; J2270; C9803; Z7610 ×5

== ENCOUNTER 2023-04-28 10:03 | Emergency (ER) | payer MEDICAID ==
[~2023-04-28] VITALS: Ht 175.3 cm; Wt 82.0 kg
[~2023-04-28 10:03] MED LIST changes: +ACET-2708 MT; +AMOX1TAB16 MT
[2023-04-28 10:07] VITALS: BP 172/94; PULSE 96; RESP 16; TEMP 98.7; O2SAT 99
== END 2023-04-28 11:53 | disposition left against medical advice (07) ==
LOC: ER 10:03
DX: R07.81 Pleurodynia (principal); H57.12 Ocular pain, left eye; E78.00 Pure hypercholesterolemia, unspecified; E11.9 Type 2 diabetes mellitus without complications; Z88.1 Allergy status to other antibiotic agents; Z91.012 Allergy to eggs; Z79.899 Other long term (current) drug therapy; Z98.890 Other specified postprocedural states
CPT/HCPCS: 99283

== ENCOUNTER 2023-08-27 03:02 | Emergency (ER) | payer MEDICAID ==
[~2023-08-27] VITALS: Ht 172.7 cm; Wt 75.0 kg
[2023-08-27 03:04] VITALS: O2SAT 100
[2023-08-27] MEDS ORDERED: CYCL10TA21 MT (06:04)
[2023-08-27 06:14] VITALS: BP 158/71; PULSE 79; RESP 16
[2023-08-27] MEDS ORDERED: CYCLOBENZAPRINE 10MG TABLET PO ONE (06:15)
== END 2023-08-27 06:15 | disposition home or self-care (01) ==
LOC: ER 03:09
DX: M54.50 Low back pain, unspecified (principal); I10 Essential (primary) hypertension; E11.9 Type 2 diabetes mellitus without complications; E78.00 Pure hypercholesterolemia, unspecified; Z91.012 Allergy to eggs; Z88.1 Allergy status to other antibiotic agents; Z79.899 Other long term (current) drug therapy; Z98.890 Other specified postprocedural states; Z79.4 Long term (current) use of insulin
CPT/HCPCS: 99283

== ENCOUNTER 2023-09-03 05:48 | Emergency (ER) | payer MEDICAID ==
[~2023-09-03] VITALS: Ht 175.3 cm; Wt 85.0 kg
[~2023-09-03 05:48] MED LIST changes: +CYCL10TA21 MT
[2023-09-03 05:51] VITALS: TEMP 98; O2SAT 98
[2023-09-03] MEDS: IBUPROFEN 800MG TABLET PO SCH (07:15)
[2023-09-03] MEDS: TRAMADOL 50MG TABLET PO SCH (07:15)
[2023-09-03] MEDS: IBUPROFEN 800MG TABLET PO ONE (07:34)
[2023-09-03] MEDS: TRAMADOL 50MG TABLET PO ONE (07:35)
[2023-09-03 07:50] LABS: BASOPHILS % 0.7 % (0.0-2.0); DIFFERENTIAL COMMENT 0; EOSINOPHILS % 2.7 % (0.0-5.0); HEMOGLOBIN. 12.6 g/dL (14.0-18.0); LYMPHOCYTES % 14.8 % (20.0-50.0); MEAN CORPUSCULAR HEMOGLOBIN 22.8 pg (28.0-32.0); MEAN CORPUSCULAR HGB CONC 31.4 g/dL (31.0-37.0); MEAN CORPUSCULAR VOLUME 72.7 fL (80.0-94.0); MEAN PLATELET VOLUME 8.1 fl (7.4-10.4); MONOCYTES % 8.8 % (2.0-8.0); PLATELET 230 x1000/uL (130-400); RED CELL DISTRIBUTION WIDTH 15.2 % (11.6-14.6); WHITE BLOOD COUNT 6.6 x1000/uL (4.5-11.0)
[2023-09-03 08:06] LABS: CALCIUM 8.5 mg/dL (8.7-10.4); CREATININE 2.9 mg/dL (0.6-1.3); POTASSIUM 4.6 mEq/L (3.5-5.1)
[2023-09-03] MEDS ORDERED: LEVO750T68 MT (13:21)
[2023-09-03] MEDS ORDERED: TRAM50TA3 MT (13:21)
[2023-09-03 13:31] VITALS: BP 175/99; PULSE 70; RESP 12
== END 2023-09-03 13:51 | disposition home or self-care (01) ==
LOC: ER 05:48
DX: G89.29 Other chronic pain (principal); M54.9 Dorsalgia, unspecified; E11.22 Type 2 diabetes mellitus with diabetic chronic kidney disease; I12.9 Hypertensive chronic kidney disease with stage 1 through stage 4 chronic kidney disease, or unspecified chronic kidney disease; N18.9 Chronic kidney disease, unspecified; M86.60 Other chronic osteomyelitis, unspecified site; E78.00 Pure hypercholesterolemia, unspecified; Z79.899 Other long term (current) drug therapy; Z91.012 Allergy to eggs; Z88.1 Allergy status to other antibiotic agents; Z98.890 Other specified postprocedural states; Z90.81 Acquired absence of spleen; V99.XXXA Unspecified transport accident, initial encounter; Y93.89 Activity, other specified; Y92.89 Other specified places as the place of occurrence of the external cause; Y99.8 Other external cause status
CPT/HCPCS: 80048; 85025; 36415; 73630; 99285; Z7610 ×2

== ENCOUNTER 2023-09-17 04:59 | Inpatient (IN) | payer MEDICAID ==
[~2023-09-17] VITALS: Ht 172.7 cm; Wt 70.8 kg
[~2023-09-17 04:59] MED LIST changes: +LEVO750T68 MT; +TRAM50TA3 MT
[2023-09-17] MEDS: ONDANSETRON HCL 4MG/2ML INJ IV ONE (06:02)
[2023-09-17] MEDS: MORPHINE SULFATE 4 MG/ML INJ (FOR IV/IM USE) IV ONE (06:03)
[2023-09-17] MEDS: SODIUM CHLORIDE 0.9% 1,000 ML IV ONE ×2 (06:20→06:22)
[2023-09-17] MEDS ORDERED: CLONIDINE 0.2MG TABLET PO ONE (06:30)
[2023-09-17] MEDS: DIPHENHYDRAMINE 50MG/ML VIAL IV ONE (06:43)
[2023-09-17] MEDS: CLONIDINE 0.1MG TABLET PO SCH (06:45)
[2023-09-17 07:30] LABS: BASOPHILS % 0.6 % (0.0-2.0); DIFFERENTIAL COMMENT 0; EOSINOPHILS % 0.5 % (0.0-5.0); HEMATOCRIT. 42.1 % (42.0-52.0); HEMOGLOBIN. 13.2 g/dL (14.0-18.0); MEAN CORPUSCULAR HEMOGLOBIN 22.8 pg (28.0-32.0); MEAN CORPUSCULAR HGB CONC 31.3 g/dL (31.0-37.0); MEAN CORPUSCULAR VOLUME 72.9 fL (80.0-94.0); MEAN PLATELET VOLUME 8.5 fl (7.4-10.4); MONOCYTES % 3.1 % (2.0-8.0); NEUTROPHILS % 85.8 % (40.0-76.0); PLATELET 259 x1000/uL (130-400); RED BLOOD CELL COUNT 5.77 mill/uL (4.7-6.1); RED CELL DISTRIBUTION WIDTH 15.2 % (11.6-14.6); WHITE BLOOD COUNT 6.4 x1000/uL (4.5-11.0)
[2023-09-17 08:12] LABS: CHLORIDE 105 mEq/L (98-107); POTASSIUM 4.9 mEq/L (3.5-5.1); SODIUM 135 mEq/L (136-145)
[2023-09-17 08:13] LABS: CARBON DIOXIDE 20 mEq/L (21-32)
[2023-09-17 08:14] LABS: CALCIUM 8.7 mg/dL (8.7-10.4)
[2023-09-17 08:19] LABS: GLUCOSE 133 mg/dL (70-105); UREA NITROGEN BLOOD 30 mg/dL (9-23)
[2023-09-17 08:20] LABS: ALANINE AMINOTRANSFERASE < 7 IU/L (10-49)
[2023-09-17 08:21] LABS: ALBUMIN 4.1 g/dL (3.2-4.8); ASPARTATE AMINOTRANSFERASE 24 IU/L (<34); BILIRUBIN TOTAL 0.6 mg/dL (0.1-1.0); PROTEIN TOTAL 7.4 g/dL (6.0-8.3)
[2023-09-17 08:26] LABS: CREATININE 4.1 mg/dL (0.6-1.3)
[2023-09-17 08:27] LABS: TROPONIN I HIGH SENSITIVITY 78 ng/L (3.0-53)
[2023-09-17 09:25] LABS: TROPONIN I HIGH SENSITIVITY 75 ng/L (3.0-53)
[2023-09-17 17:00] VITALS: BP 150/89; PULSE 68; RESP 18; TEMP 97.6
[2023-09-17] MEDS ORDERED: IPRATROPIUM/ALBUTEROL 0.5-3(2.5)MG/3ML NEB HHN PRN (17:00)
[2023-09-17] MEDS ORDERED: GUAIFENESIN 200MG/10ML SUGAR FREE UDC PO PRN (17:00)
[2023-09-17] MEDS ORDERED: DEXTROSE 50% WATER 50ML SYRINGE IV PRN (17:00)
[2023-09-17] MEDS: BLOOD SUGAR DIAGNOSTIC STRIP TEST SCH (17:00)
[2023-09-17] MEDS ORDERED: ACETAMINOPHEN 325MG TABLET PO PRN ×2 (17:00)
[2023-09-17 17:12] LABS: CLARITY URINE CLEAR (CLEAR); COLOR URINE YELLOW (YELLOW); GLUCOSE URINE NEGATIVE (NEGATIVE); KETONES URINE TRACE (NEGATIVE); LEUKOCYTE ESTERASE URINE NEGATIVE (NEGATIVE); NITRITE URINE NEGATIVE (NEGATIVE); OCCULT BLOOD URINE TRACE (NEGATIVE); PROTEIN URINE 2+ (NEGATIVE); SPECIFIC GRAVITY URINE 1.012 (1.005-1.030); UROBILINOGEN URINE 0.2 E.U./dL (0.2-1.0)
[2023-09-17] MEDS ORDERED: NALOXONE HCL 0.4MG/ML VIAL IV PRN (17:15)
[2023-09-17 17:25] LABS: *AMPHETAMINES SCREEN URINE NEGATIVE (NEGATIVE); *BARBITURATES SCREEN URINE NEGATIVE (NEGATIVE); *BENZODIAZEPINES SCREEN URINE NEGATIVE (NEGATIVE); *COCAINE SCREEN URINE PRESUMPTIVE POSITIVE (NEGATIVE); CANNABINOID URINE SCREEN NEGATIVE (NEGATIVE); ECSTASY MDMA SCREEN URINE NEGATIVE (NEGATIVE); METHADONE URINE SCREEN NEGATIVE (NEGATIVE); OPIATES URINE SCREEN PRESUMPTIVE POSITIVE (NEGATIVE); PHENCYCLIDINE URINE SCREEN NEGATIVE (NEGATIVE)
[2023-09-17 17:32] LABS: BACTERIA URINE TRACE; RBC URINE 0-2 /hpf (0-2); SQUAMOUS EPITHELIAL CELL URINE RARE /lpf (RARE/1+); WBC URINE 0-2 /hpf (0-2)
[2023-09-17] MEDS: INSULIN LISPRO 100 UNITS/ML SUBCUT SCH (17:40)
[2023-09-17] MEDS: METOCLOPRAMIDE HCL 10MG/2ML VIAL IV NR (18:00)
[2023-09-17] MEDS: PANTOPRAZOLE SODIUM 40 MG/VIAL IV NR (18:00)
[2023-09-17] MEDS: ENOXAPARIN 30MG/0.3ML SYR SUBCUT SCH (18:00)
[2023-09-17] MEDS ORDERED: HYDRALAZINE 10 MG in SODIUM CHLORIDE 0.9% 49.5 ML IV PRN (18:30)
[2023-09-17 19:43] LABS: HEPATITIS B SURFACE ANTIGEN NEGATIVE (Negative)
[2023-09-17 20:00] VITALS: BP 162/74; PULSE 89; RESP 18; TEMP 98.8
[2023-09-17 20:04] LABS: HEPATITIS C AB NON REACTIVE (Neg) (Negative)
[2023-09-17] MEDS: ATORVASTATIN CALCIUM 20MG TABLET PO SCH (21:29)
[2023-09-17] MEDS: HYDRALAZINE HCL 100MG TABLET PO SCH (21:30)
[2023-09-17] MEDS: HYDROCODONE/ACETAMINOPHEN 7.5/325MG TABLET PO PRN (21:55)
[2023-09-18] VITALS: BP 149/72; PULSE 80; RESP 18; TEMP 98.7
[2023-09-18 01:03] LABS: CREATINE KINASE MB FRACTION 4.9 ng/mL (0.5-3.6)
[2023-09-18] MEDS: ONDANSETRON HCL 4MG/2ML INJ IV PRN (02:13)
[2023-09-18 04:00] VITALS: BP 105/56; PULSE 72; RESP 18; TEMP 97.1
[2023-09-18 06:43] LABS: BASOPHILS % 0.9 % (0.0-2.0); DIFFERENTIAL COMMENT 0; EOSINOPHILS % 2.9 % (0.0-5.0); HEMATOCRIT. 39.3 % (42.0-52.0); HEMOGLOBIN. 12.2 g/dL (14.0-18.0); MEAN CORPUSCULAR HEMOGLOBIN 22.3 pg (28.0-32.0); MEAN CORPUSCULAR HGB CONC 31.1 g/dL (31.0-37.0); MEAN CORPUSCULAR VOLUME 71.8 fL (80.0-94.0); MEAN PLATELET VOLUME 8.8 fl (7.4-10.4); MONOCYTES % 8.7 % (2.0-8.0); NEUTROPHILS % 55.5 % (40.0-76.0); PLATELET 226 x1000/uL (130-400); RED BLOOD CELL COUNT 5.48 mill/uL (4.7-6.1); RED CELL DISTRIBUTION WIDTH 15.1 % (11.6-14.6); WHITE BLOOD COUNT 5.2 x1000/uL (4.5-11.0)
[2023-09-18 06:55] LABS: CHLORIDE 109 mEq/L (98-107); POTASSIUM 4.1 mEq/L (3.5-5.1); SODIUM 139 mEq/L (136-145)
[2023-09-18 06:56] LABS: CARBON DIOXIDE 21 mEq/L (21-32)
[2023-09-18 06:57] LABS: CALCIUM 8.2 mg/dL (8.7-10.4)
[2023-09-18 07:01] LABS: CREATINE KINASE MB FRACTION 4.9 ng/mL (0.5-3.6); CREATININE 3.7 mg/dL (0.6-1.3); GLUCOSE 109 mg/dL (70-105)
[2023-09-18 07:02] LABS: LDL CHOLESTEROL 69 mg/dL (5-100); TRIGLYCERIDE 85 mg/dL (0-150); UREA NITROGEN BLOOD 35 mg/dL (9-23)
[2023-09-18 07:03] LABS: ALANINE AMINOTRANSFERASE < 7 IU/L (10-49); ALBUMIN 3.5 g/dL (3.2-4.8); ASPARTATE AMINOTRANSFERASE 17 IU/L (<34); CHOLESTEROL 118 mg/dL (<200); CREATINE KINASE 155 IU/L (46-171)
[2023-09-18 07:04] LABS: BILIRUBIN TOTAL 0.3 mg/dL (0.1-1.0); HDL CHOLESTEROL 38 mg/dL (>55); PROTEIN TOTAL 6.5 g/dL (6.0-8.3)
[2023-09-18 07:05] LABS: T4 FREE 1.09 ng/dL (0.89-1.76); THYROID STIMULATING HORMONE 0.98 uIU/mL (0.55-4.78)
[2023-09-18 07:20] LABS: TROPONIN I HIGH SENSITIVITY 183 ng/L (3.0-53)
[2023-09-18 08:00] VITALS: BP 103/70; PULSE 68; RESP 18; TEMP 96.4
[2023-09-18] MEDS: AMLODIPINE 10MG TABLET PO SCH (08:26)
[2023-09-18 11:57] LABS: CREATINE KINASE MB FRACTION 5.1 ng/mL (0.5-3.6)
[2023-09-18 12:00] VITALS: BP 119/63; PULSE 67; RESP 18; TEMP 97.7
[2023-09-18] MEDS ORDERED: MAGNESIUM/ALUMINUM HYDROXIDE/SIMETHICONE 30ML UDC PO PRN (14:30)
[2023-09-18 16:00] VITALS: BP 112/74; PULSE 66; RESP 18; TEMP 96.1
[2023-09-18] MEDS: SODIUM CHLORIDE 0.9% 1,000 ML IV SCH (19:00)
[2023-09-18 20:00] VITALS: BP 134/78; PULSE 71; RESP 18; TEMP 97.7
[2023-09-18] MEDS: FAMOTIDINE 20MG TABLET PO SCH (21:04)
[2023-09-18] MEDS: MAGNESIUM/ALUMINUM HYDROXIDE/SIMETHICONE 30ML UDC PO PRN (21:07)
[2023-09-19] VITALS: BP 136/74; PULSE 72; RESP 18; TEMP 97.5
[2023-09-19 04:00] VITALS: BP 124/72; PULSE 68; RESP 18; TEMP 98.3
[2023-09-19 08:00] VITALS: BP 162/78; PULSE 83; RESP 20; TEMP 97
[2023-09-19] MEDS: DOCUSATE SODIUM 100MG CAPSULE PO PRN (10:01)
[2023-09-19] MEDS: PANTOPRAZOLE SODIUM 40 MG/VIAL IV SCH (11:32)
[2023-09-19 12:00] VITALS: BP 116/60; PULSE 76; RESP 20; TEMP 97.6
[2023-09-19 13:42] LABS: POTASSIUM 4.7 mEq/L (3.5-5.1)
[2023-09-19 13:44] LABS: CALCIUM 7.6 mg/dL (8.7-10.4)
[2023-09-19 13:48] LABS: CREATININE 3.5 mg/dL (0.6-1.3)
[2023-09-19 16:00] VITALS: BP 130/61; PULSE 114; RESP 20; TEMP 98
[2023-09-19 16:04] LABS: BASOPHILS % 1.1 % (0.0-2.0); DIFFERENTIAL COMMENT 0; EOSINOPHILS % 4.1 % (0.0-5.0); HEMATOCRIT. 38.8 % (42.0-52.0); HEMOGLOBIN. 11.9 g/dL (14.0-18.0); LYMPHOCYTES % 31.3 % (20.0-50.0); MEAN CORPUSCULAR HEMOGLOBIN 22.2 pg (28.0-32.0); MEAN CORPUSCULAR HGB CONC 30.6 g/dL (31.0-37.0); MEAN CORPUSCULAR VOLUME 72.5 fL (80.0-94.0); MONOCYTES % 8.2 % (2.0-8.0); NEUTROPHILS % 55.3 % (40.0-76.0); PLATELET 241 x1000/uL (130-400); RED BLOOD CELL COUNT 5.36 mill/uL (4.7-6.1); RED CELL DISTRIBUTION WIDTH 15.4 % (11.6-14.6); WHITE BLOOD COUNT 4.4 x1000/uL (4.5-11.0)
[2023-09-19 16:43] LABS: TROPONIN I HIGH SENSITIVITY 84 ng/L (3.0-53)
[2023-09-20] VITALS: RESP 18
[2023-09-20 00:31] LABS: TROPONIN I HIGH SENSITIVITY 87 ng/L (3.0-53)
[2023-09-20 04:00] VITALS: BP 100/66; PULSE 91; RESP 16; TEMP 98.6
[2023-09-20 07:15] LABS: POTASSIUM 4.5 mEq/L (3.5-5.1)
[2023-09-20 07:21] LABS: CREATININE 3.2 mg/dL (0.6-1.3)
[2023-09-20 07:29] LABS: HEMATOCRIT 37.9 % (42.0-52.0); HEMOGLOBIN 11.6 g/dL (14.0-18.0); MEAN CORPUSCULAR HEMOGLOBIN 22.5 pg (28.0-32.0); MEAN CORPUSCULAR HGB CONC 30.7 g/dL (31.0-37.0); MEAN CORPUSCULAR VOLUME 73.1 fL (80.0-94.0); PLATELET 241 x1000/uL (130-400); RED BLOOD CELL COUNT 5.19 mill/uL (4.7-6.1); RED CELL DISTRIBUTION WIDTH 15.3 % (11.6-14.6); WHITE BLOOD COUNT 4.5 x1000/uL (4.5-11.0)
[2023-09-20 08:00] VITALS: BP 115/54; PULSE 93; RESP 18; TEMP 97.7
[2023-09-20 12:00] VITALS: BP 147/78; PULSE 84; RESP 18; TEMP 97.7
[2023-09-20] MEDS: SODIUM HYPOCHLORITE SOLUTION (0.5%)FULL STRENGTH TOP SCH (13:00)
[2023-09-20] MEDS: PANTOPRAZOLE 40MG DR TABLET PO SCH (15:50)
[2023-09-20 16:00] VITALS: BP 150/86; PULSE 79; RESP 18; TEMP 97.5
[2023-09-20 20:00] VITALS: BP 151/73; PULSE 81; RESP 17; TEMP 97.7
[2023-09-21] VITALS: BP 128/83; PULSE 76; RESP 18; TEMP 97.7
[2023-09-21 04:00] VITALS: BP 158/92; PULSE 81; RESP 16; TEMP 97.9
[2023-09-21 08:00] VITALS: BP 172/91; PULSE 91; RESP 22; TEMP 98.6
[2023-09-21 12:00] VITALS: BP 170/93; PULSE 94; RESP 22; TEMP 98
[2023-09-21] MEDS: LACTULOSE 20G/30ML UDC PO NR (12:30)
[2023-09-21] MEDS: METOCLOPRAMIDE HCL 10MG/2ML VIAL IV NR (12:42)
[2023-09-21] MEDS: DIPHENHYDRAMINE 12.5MG/5ML UDC PO NR (13:34)
[2023-09-21] MEDS ORDERED: CLONIDINE 0.1MG TABLET PO SCH (14:00)
[2023-09-21 16:00] VITALS: BP 162/87; PULSE 90; RESP 20; TEMP 98
[2023-09-21 20:00] VITALS: BP 153/82; PULSE 82; RESP 18; TEMP 97.8
[2023-09-21] MEDS: CLONIDINE 0.1MG TABLET PO PRN (23:42)
[2023-09-22] VITALS: BP 164/78; PULSE 88; RESP 19; TEMP 98.6
[2023-09-22 04:00] VITALS: BP 133/68; PULSE 89; RESP 18; TEMP 97.8
[2023-09-22] MEDS ORDERED: HYDRALAZINE 20MG/ML VIAL IV PRN (07:45)
[2023-09-22 08:00] VITALS: BP 159/79; PULSE 82; RESP 18; TEMP 97.4
[2023-09-22 12:00] VITALS: BP 156/80; PULSE 77; RESP 18; TEMP 97.5
[2023-09-22 13:04] VITALS: BP 122/76; PULSE 78; TEMP 98.3; O2SAT 98
== END 2023-09-22 15:10 | disposition home health service (06) | DRG 816 ==
LOC: ER 04:59 → EDBEDREQ 12:57 → 8WST 14:00 → EDBEDREQTM 14:01 → EDBEDREQ 14:01
PROVIDERS: ADMIT Internal Medicine; ATTEND Internal Medicine
DX: T40.5X1A Poisoning by cocaine, accidental (unintentional), initial encounter (principal); I21.A1 Myocardial infarction type 2; I50.43 Acute on chronic combined systolic (congestive) and diastolic (congestive) heart failure; N17.9 Acute kidney failure, unspecified; L97.529 Non-pressure chronic ulcer of other part of left foot with unspecified severity; D63.8 Anemia in other chronic diseases classified elsewhere; I13.0 Hypertensive heart and chronic kidney disease with heart failure and stage 1 through stage 4 chronic kidney disease, or unspecified chronic kidney disease; E86.0 Dehydration; N28.0 Ischemia and infarction of kidney; E11.621 Type 2 diabetes mellitus with foot ulcer; E11.22 Type 2 diabetes mellitus with diabetic chronic kidney disease; D50.9 Iron deficiency anemia, unspecified; E11.51 Type 2 diabetes mellitus with diabetic peripheral angiopathy without gangrene; I16.1 Hypertensive emergency; N18.9 Chronic kidney disease, unspecified; K21.9 Gastro-esophageal reflux disease without esophagitis; F14.10 Cocaine abuse, uncomplicated; G89.4 Chronic pain syndrome; F17.210 Nicotine dependence, cigarettes, uncomplicated; E78.00 Pure hypercholesterolemia, unspecified; Z91.199 Patient's noncompliance with other medical treatment and regimen due to unspecified reason; Z91.148 Patient's other noncompliance with medication regimen for other reason; Z90.81 Acquired absence of spleen; Z89.432 Acquired absence of left foot; Z88.1 Allergy status to other antibiotic agents; Z83.3 Family history of diabetes mellitus; Z79.899 Other long term (current) drug therapy; Z79.4 Long term (current) use of insulin
CPT/HCPCS: 36415; 71045; 73620; 80048; 80053; 80061; 80305; 81003; 82550; 82553; 82962; 83036; 83605; 83880; 84145; 84439; 84443; 84484; 85025; 85027; 85651; 86705; 87340; 93005; 93306; 93923; 93970; 97162; 97166; 99291; C9113; J1200; J1650; J1815; J2270; J2405; J2765; J7030; Q0163